=== PATIENT | female | born 1955 | race African-American/Black ===

== ENCOUNTER 2017-04-05 08:56 | Inpatient (IN) | payer OTHER ==
--- NOTE | 2017-04-05 09:13 | PDOC ---
History of Present Illness <Gregg Powell - Last Filed: 04/05/17 11:44> - History of Present Illness Initial Comments: 04/05/17 09:36 The patient is a 61 year old female, with a significant past medical history of hypertension (untreated), who presents to the emergency department with left sided back pain radiating to her left flank and left upper and lower abdominal quadrants since her discharge from [facility] about 2 weeks ago. The patient is not the best historian, however, staff from [facility] ED was able to inform me the patient was admitted to the 5th floor on 03/18/17 for similar complaints. The patient states she was discharged home on Tylenol codeine, a liquid diet, and miralax. She states she has been constipated since her discharge, but reports about a few small, painful, hard bowel movements in the past 5-7 days. She reports a bowel movement this morning which exacerbated her flank and abdominal pain. She states they told me I had gallstones that would pass, but then they said I didnt have gallstones. She denies chest pain, shortness of breath, headache and dizziness. She denies fever, chills, nausea, vomit, diarrhea. She denies dysuria, frequency, urgency and hematuria. Allergies: ampicillin Past surgical history: hysterectomy (~20 yrs ago) Social history: Pt denies tobacco use. Reports occasional ETOH. Patient has no PCP (reportedly between insurances at the moment) <Edie Harris - Last Filed: 04/05/17 13:32> - General Chief Complaint: Pain Stated Complaint: ABD PAIN Time Seen by Provider: 04/05/17 09:12 Past History <Gregg Powell - Last Filed: 04/05/17 11:44> <Edie Harris - Last Filed: 04/05/17 13:32> - Past Medical History Allergies/Adverse Reactions: Allergies Allergy/AdvReac Type Severity Reaction Status Date / Time ampicillin Allergy Verified 04/05/17 09:56 Home Medications: Ambulatory Orders NK [No Known Home Medication] 04/05/17 Review of Systems - Review of Systems Able to Perform ROS?: Yes Comments:: 04/05/17 09:36 GENERAL/CONSTITUTIONAL: No fever or chills. No weakness. HEAD, EYES, EARS, NOSE AND THROAT: No change in vision. No ear pain or discharge. No sore throat. CARDIOVASCULAR: No chest pain or shortness of breath. RESPIRATORY: No cough, wheezing, or hemoptysis. GASTROINTESTINAL: (+) left sided abdominal pain. constipation with "small hard painful BM." No nausea, vomiting, diarrhea GENITOURINARY: (+) left flank pain. No dysuria, frequency, or change in urination. MUSCULOSKELETAL: No joint or muscle swelling or pain. No neck or back pain. SKIN: No rash NEUROLOGIC: No headache, vertigo, loss of consciousness, or change in strength/ sensation. ENDOCRINE: No increased thirst. No abnormal weight change. HEMATOLOGIC/LYMPHATIC: No anemia, easy bleeding, or history of blood clots. ALLERGIC/IMMUNOLOGIC: No hives or skin allergy. <Edie Harris - Last Filed: 04/05/17 13:32> *Physical Exam - Vital Signs Last Vital Signs Temp Pulse Resp BP Pulse Ox 98.3 F 94 H 18 214/139 100 04/05/17 09:08 04/05/17 09:08 04/05/17 09:08 04/05/17 09:08 04/05/17 09:08 - Physical Exam Comments: 04/05/17 09:39 GENERAL: Awake, alert, and fully oriented, in no acute distress HEAD: No signs of trauma EYES: PERRLA, EOMI, sclera anicteric, conjunctiva clear ENT: Auricles normal inspection, hearing grossly normal, nares patent, oropharynx clear without exudates. Moist mucosa NECK: Normal ROM, supple, no lymphadenopathy, JVD, or masses LUNGS: Breath sounds equal, clear to auscultation bilaterally. No wheezes, and no crackles HEART: Regular rate and rhythm, normal S1 and S2, no murmurs, rubs or gallops ABDOMEN: (+) slightly distended. Soft, nontender, normoactive bowel sounds. No guarding, no rebound. No masses EXTREMITIES: Normal range of motion, no edema. No clubbing or cyanosis. No cords, erythema, or tenderness NEUROLOGICAL: Cranial nerves II through XII grossly intact. Normal speech, normal gait SKIN: Warm, Dry, normal turgor, no rashes or lesions noted. <Edie Harris - Last Filed: 04/05/17 13:32> ED Treatment Course - LABORATORY CBC & Chemistry Diagram: 04/05/17 09:50 04/05/17 09:50 <Gregg Powell - Last Filed: 04/05/17 11:44> - LABORATORY CBC & Chemistry Diagram: 04/05/17 09:50 04/05/17 09:50 - RADIOLOGY Radiograph Interpretation: EXAM#: TYPE/EXAM: RESULT: [id number] US/KIDNEY / RENAL US [id number] US/ABDOMEN US -LIMITED History of gallstones. Flank pain Upper abdomen and bilateral renal ultrasound. No prior is available for comparison. The liver is within normal limits in size with a slightly coarse echotexture. The gallbladder is adequately distended with multiple intraluminal stones and mild thickening of its wall measuring 4 mm. There is no evidence of pericholecystic free fluid. No intra or extrahepatic bile duct dilatation is seen. The right and left kidney measured 9.2 and 9.2 cm , respectively. Both kidneys appear unremarkable. The spleen measures 7.1 cm in sagittal length with homogeneous echotexture. Visualized portion of the pancreatic head and body appear unremarkable. Visualized portion of the proximal abdominal aorta and inferior vena cava are patent. Normal flow in the main portal vein. IMPRESSION: Multiple gallstones and mild thickening of the gallbladder wall without evidence of pericholecystic free fluid. Correlate clinically for further evaluation. Slightly coarse echotexture of the liver rule out mild fatty infiltration. Please correlate with liver enzymes Reported By: Aldair Saldana MD 04/05/17 1119 EXAM#: TYPE/EXAM: RESULT: [id number] RAD/CHEST - PA Constipation. Pain. Chest x ray, AP sitting A frontal view of the chest was obtained. Compared to prior chest x-ray dated 03/15/2006. The cardiac silhouette remains borderline in size with mild atherosclerotic unfolding of the aortic arch. The lung is clear. Mediastinum and visualized osseous structures appear intact . Impression: Borderline cardiomegaly. No acute lung disease is present. Reported By: Aldair Saldana MD 04/05/17 1125 <Edie Harris - Last Filed: 04/05/17 13:32> Medical Decision Making - Medical Decision Making 04/05/17 09:40 [facility] ED was called ([phone]) inquiring about this patient's recent admission. The patient's case was discussed with MP Bhatti. I was informed the patient was admitted to [facility]'s 5th floor on 03/18/17. I was informed the patient had and ultrasound while admitted, however, the nurse states she is unable to provide me with the report due to medical record accession restrictions. I have faxed the authorization form for the release of patient information to ). This number was provided to me by "Dany" at [facility] ED via phone call. 04/05/17 12:10 At this time, I am still pending the medical records from this patient's most recent admission to [facility]. 04/05/17 13:25 We are still pending the records from [facility] ED. 04/05/17 13:30 A message was left with the medical correspondence office ([phone]) of [facility] requesting a call back to determine when we will receive the medical records of this patient. <Edie Harris - Last Filed: 04/05/17 13:32> *DC/Admit/Observation/Transfer - Discharge Dispostion Admit: Yes - Attestations Physician Attestion: 04/05/17 09:12 I, Dr. Gregg Powell, attest that this document has been prepared under my direction and personally reviewed by me in its entirety. I further attest, that it accurately reflects all work, treatment, procedures and medical decision -making performed by me. <Gregg Powell - Last Filed: 04/05/17 11:44> - Attestations Scribe Attestion: 04/05/17 09:39 Documentation prepared by Edie Harris, acting as medical insurance verifier for Gregg Powell DO <Edie Harris - Last Filed: 04/05/17 13:32> Diagnosis at time of Disposition: Dehydration, Uncontrolled hypertension, Gallstones, Biliary colic, Cholecystitis, Constipation, Left sided abdominal pain - Discharge Dispostion Condition at time of disposition: Improved
[2017-04-05] MEDS ORDERED: hydrALAZINE HCL 20 MG/ML VIAL ONE ×2 (09:49→13:52)
[2017-04-05] MEDS ORDERED: hydrALAZINE HCL 20 MG/ML VIAL IVPUSH ONE ×2 (09:49→13:35)
[2017-04-05 10:00] LABS: BASOPHIL 0.9 % (0-2.0); MCH 25.8 pg (25.7-33.7); MCHC 33.1 g/dl (32.0-36.0); MEAN PLT VOLUME 8.7 fl (7.5-11.1); NEUTROPHILS 77.6 % (42.8-82.8); PLATELET COUNT 287 K/MM3 (134-434); RDW 15.3 % (11.6-15.6); WHITE BLOOD COUNT 9.2 K/mm3 (4.0-10.0)
[2017-04-05 10:11] LABS: INR 1.16 (0.82-1.09); PROTHROMBIN TIME (PATIENT) 13.1 SEC (9.98-11.88)
[2017-04-05 10:26] LABS: ALBUMIN 4.5 g/dl (3.4-5.0); ANION GAP 9 (8-16); BILIRUBIN,TOTAL 0.6 mg/dL (0.2-1.0); CALCIUM 10.1 mg/dL (8.5-10.1); CO2 30 mmol/L (21-32); CPK 139 IU/L (26-192); CREATININE 1.2 mg/dL (0.55-1.02); GLUCOSE,RANDOM 114 mg/dL (74-106); SGPT/ALT 18 U/L (12-78); TOT PROT 8.8 g/dl (6.4-8.2)
[2017-04-05 10:28] LABS: ALK PHOS 71 U/L (45-117); TROPONIN I < 0.02 ng/ml (0.00-0.05)
[2017-04-05 11:22] LABS: SGOT/AST 18 U/L (15-37)
[2017-04-05] MEDS ORDERED: ONDANSETRON 4 MG/2 ML VIAL IVPUSH ONE (11:37)
[2017-04-05] MEDS ORDERED: METOPROLOL TARTRATE 5 MG/5 ML VIAL IVPUSH ONE ×2 (11:37)
[2017-04-05] MEDS ORDERED: morphine CARPU-JECT 2 MG/1 ML DISP.SYRIN IVPUSH ONE (11:37)
[2017-04-05] MEDS ORDERED: SODIUM CHLORIDE 1,000 ML IV STA ×2 (11:42→14:44)
[2017-04-05] MEDS ORDERED: ONDANSETRON 4 MG/2 ML VIAL ONE (11:58)
[2017-04-05] MEDS ORDERED: METOPROLOL TARTRATE 5 MG/5 ML VIAL ONE ×3 (11:58→16:45)
[2017-04-05] MEDS ORDERED: morphine CARPU-JECT 10 MG/1 ML DISP.SYRIN ONE ×2 (12:00→18:55)
[2017-04-05 12:08] LABS: URINE APPEARANCE SLCLOUDY; URINE BILIRUBIN NEGATIVE (NEGATIVE); URINE BLOOD NEGATIVE (NEGATIVE); URINE COLOR DKYELLOW; URINE GLUCOSE (UA) NEGATIVE (NEGATIVE); URINE KETONE 1+ (NEGATIVE); URINE NITRITE NEGATIVE (NEGATIVE); URINE UROBILINOGEN NEGATIVE mg/dL (0.2-1.0)
[2017-04-05 12:30] LABS: URINE PROTEIN 2+ (NEGATIVE)
[2017-04-05 12:45] LABS: URINE HYALINE CAST 36 /lpf; URINE MUCUS MANY; URINE RBC 10 /hpf (0-3); URINE WBC 7 /hpf (3-5)
[2017-04-05 13:15] LABS: URINE MARIJUANA THC NEGATIVE ng/ml (CUTOFF=50)
--- NOTE | 2017-04-05 13:22 | EKG ---
Test Reason : Blood Pressure : / mmHG Vent. Rate : 092 BPM Atrial Rate : 092 BPM P-R Int : 176 ms QRS Dur : 092 ms QT Int : 350 ms P-R-T Axes : 063 000 077 degrees QTc Int : 432 ms NORMAL SINUS RHYTHM POSSIBLE LEFT ATRIAL ENLARGEMENT LEFT VENTRICULAR HYPERTROPHY CANNOT RULE OUT SEPTAL INFARCT , AGE UNDETERMINED ABNORMAL ECG WHEN COMPARED WITH ECG OF 30-DEC-2006 13:01, MINIMAL CRITERIA FOR SEPTAL INFARCT ARE NOW PRESENT T WAVE AMPLITUDE HAS INCREASED IN INFERIOR LEADS Confirmed by KENNEDI ESTRADA, TONNY ([id number]) on 04/05/2017 1:22:48 PM Referred By: Confirmed By:TONNY KOLB MD
[2017-04-05] MEDS ORDERED: METOPROLOL TARTRATE 25 MG TABLET (FP) PO ONE (13:35)
[2017-04-05] MEDS ORDERED: METOPROLOL TARTRATE 25 MG TABLET (FP) ONE (13:53)
[2017-04-05] MEDS ORDERED: ONDANSETRON 4 MG/2 ML VIAL IVPUSH PRN (14:01)
[2017-04-05] MEDS ORDERED: ACETAMINOPHEN INJECTION 100 ML IVPB ONE (14:57)
[2017-04-05] MEDS ORDERED: ACETAMINOPHEN 1000 MG/100 ML VIAL (NON FORMULARY) IVPB ONE (15:14)
--- NOTE | 2017-04-05 15:41 | HP ---
CHIEF COMPLAINT:abdominal pain PCP: HISTORY OF PRESENT ILLNESS: 61 yo F with PMHx of HTN and hyperthyroidism (s/p AC ablation) presents with two week history of abdominal pain. SHe describes 10/10 constant stabbing LLQ abdominal pain that radiates to back. She states it is exacerbated by defecation and relieved by lying still. She has had continued non bloody non billous vomiting for past 3 days. She also mentions 8/10 intermittent RUQ abdominal pain.She endorses subjective fevers and chills. No sick contacts. She was recently seen a [facility] for same issue and started on oral pain meds and discharged. Denies CP,PINEDA SOB,or palpitations. ER course was notable for: (1)BP elevated >200/100 - given hydralazine and labetolol (2)Abdominal US shows:Multiple gallstones and mild thickening of the gallbladder wall without evidence of pericholecystic free fluid (3) Recent Travel: PAST MEDICAL HISTORY:HTN, Hyperthyroidism (s/p AC ablations) PAST SURGICAL HISTORY: x2 , Hysterctomy Social History: Smoking: remote history 2 cigs/day during the regan for 4 years. Alcohol:socially Drugs: denies. Family History: Allergies ampicillin Allergy (Verified 04/05/17 09:56) HOME MEDICATIONS: Home Medications Medication Instructions Recorded NK [No Known Home Medication] 04/05/17 REVIEW OF SYSTEMS CONSTITUTIONAL: Absent: fever, chills, diaphoresis, generalized weakness, malaise, loss of appetite, weight change HEENT: Absent: rhinorrhea, nasal congestion, throat pain, throat swelling, difficulty swallowing, mouth swelling, ear pain, eye pain, visual changes CARDIOVASCULAR: Absent: chest pain, syncope, palpitations, irregular heart rate, lightheadedness , peripheral edema RESPIRATORY: Absent: cough, shortness of breath, dyspnea with exertion, orthopnea, wheezing, stridor, hemoptysis GASTROINTESTINAL:abdominal pain, abdominal distension, nausea, vomiting Absent: , diarrhea, constipation, melena, hematochezia GENITOURINARY: Absent: dysuria, frequency, urgency, hesitancy, hematuria, flank pain, genital pain MUSCULOSKELETAL: Absent: myalgia, arthralgia, joint swelling, back pain, neck pain SKIN: Absent: rash, itching, pallor HEMATOLOGIC/IMMUNOLOGIC: Absent: easy bleeding, easy bruising, lymphadenopathy, frequent infections ENDOCRINE: Absent: unexplained weight gain, unexplained weight loss, heat intolerance, cold intolerance NEUROLOGIC: Absent: headache, focal weakness or paresthesias, dizziness, unsteady gait, seizure, mental status changes, bladder or bowel incontinence PSYCHIATRIC: Absent: anxiety, depression, suicidal or homicidal ideation, hallucinations. PHYSICAL EXAMINATION Vital Signs - 24 hr 04/05/17 04/05/17 04/05/17 12:11 12:55 13:03 Temperature Pulse Rate 120 H 88 Pulse Rate [ 87 Apical] Pulse Rate [ Left Radial] Respiratory 18 Rate Blood Pressure 201/89 207/112 Blood Pressure 196/119 [Right Arm] O2 Sat by Pulse 97 Oximetry (%) 04/05/17 04/05/17 04/05/17 13:04 13:36 14:13 Temperature Pulse Rate Pulse Rate [ Apical] Pulse Rate [ 88 86 89 Left Radial] Respiratory 18 19 Rate Blood Pressure Blood Pressure 207/112 206/120 194/112 [Right Arm] O2 Sat by Pulse 96 Oximetry (%) 04/05/17 04/05/17 04/05/17 14:29 14:54 15:11 Temperature 99.8 F H 100.3 F H Pulse Rate Pulse Rate [ Apical] Pulse Rate [ 85 Left Radial] Respiratory 19 Rate Blood Pressure Blood Pressure 200/102 [Right Arm] O2 Sat by Pulse Oximetry (%) GENERAL: AAOx3, Mild distress HEAD: NC/AT EYES: PERLLA,EOMI sclera anicteric, conjunctiva clear. No lid lag. EARS, NOSE, THROAT: Moist mucous membranes. NECK: supple, no jvd LUNGS: CTAB. No wheezes, and no crackles. No accessory muscle use. HEART: RRR, normal S1 and S2 no m/g/r ABDOMEN: Soft,RUQ and LLQ tenderness , mildly distended, normoactive bowel sounds, voluntary guarding, no rebound, no masses. MUSCULOSKELETAL:No CVA tenderness. UPPER EXTREMITIES: 2+ pulses, warm, well-perfused. No cyanosis. No clubbing. No peripheral edema. LOWER EXTREMITIES: 2+ pulses, warm, well-perfused. No calf tenderness. No peripheral edema. NEUROLOGICAL: Cranial nerves II-XII intact. Normal speech. PSYCHIATRIC: Cooperative. Good eye contact.anxious SKIN: Warm, dry, normal turgor, no rashes or lesions noted, normal capillary refill. Laboratory Results - last 24 hr 04/05/17 04/05/17 04/05/17 11:49 11:49 12:35 Lactic Acid 3.2 H* Urine Color Dkyellow Urine Appearance Slcloudy Urine pH 5.0 Urine Protein 2+ H Urine Glucose (UA) Negative Urine Ketones 1+ H Urine Blood Negative Urine Nitrite Negative Urine Bilirubin Negative Urine Urobilinogen Negative Urine RBC 10 Urine WBC 7 Ur Epithelial Cells Rare Hyaline Casts 36 Urine Mucus Many Opiates Screen Positive Methadone Screen Negative Barbiturate Screen Positive Phencyclidine Screen Negative Ur Amphetamines Screen Negative MDMA (Ecstasy) Screen Negative Benzodiazepines Screen Negative Cocaine Screen Negative U Marijuana (THC) Screen Negative Blood Type 04/05/17 13:38 Lactic Acid Urine Color Urine Appearance Urine pH Urine Protein Urine Glucose (UA) Urine Ketones Urine Blood Urine Nitrite Urine Bilirubin Urine Urobilinogen Urine RBC Urine WBC Ur Epithelial Cells Hyaline Casts Urine Mucus Opiates Screen Methadone Screen Barbiturate Screen Phencyclidine Screen Ur Amphetamines Screen MDMA (Ecstasy) Screen Benzodiazepines Screen Cocaine Screen U Marijuana (THC) Screen Blood Type O POSITIVE ASSESSMENT/PLAN: 61 yo F with PMHx of HTN and hyperthyroidism (s/p AC ablation) presents with two week history of abdominal pain admitted to med/surg for hypertensive urgency and intractable abdominal pain. Problem List - Problem (1) Hypertensive urgency Assessment/Plan: * Due to BP >200/100 patient is at increased risk for adverse cardiac events including but not limited to stroke or myocardial infarction. * Will admit to med/surg * Cardiology consult. * Echo ordered. * Labetolol and hydralazine for BP control pending cardiology recommendation. (2) Biliary colic Assessment/Plan: * Pain control with IV morphine 2mg IVPush Q4H PRN * NPO for now * Surgical evaluation. (3) Constipation Assessment/Plan: * Miralax and colace (4) Dehydration Assessment/Plan: * IVF hydration with caution given her elevated BP * IVF with NS @ 75ml hr (5) DVT prophylaxis Assessment/Plan: * Heparin 5000 u SQ TID. (6) DIANA (acute kidney injury) Assessment/Plan: * IVF * Renal US did not show hydronephrosis Code(s): N17.9 - ACUTE KIDNEY FAILURE, UNSPECIFIED Visit type - Emergency Visit Emergency Visit: Yes ED Registration Date: 04/05/17 Care time: The patient presented to the Emergency Department on the above date and was hospitalized for further evaluation of their emergent condition. - New Patient This patient is new to me today: Yes Date on this admission: 04/05/17 - Critical Care Critical Care patient: No
[2017-04-05] MEDS ORDERED: METOPROLOL TARTRATE 5 MG/5 ML VIAL IVPUSH PRN (15:49)
[2017-04-05] MEDS ORDERED: hydrALAZINE HCL 20 MG/ML VIAL IVPUSH PRN ×2 (15:49→21:00)
--- NOTE | 2017-04-05 16:08 | CON.CARD ---
Consult Consult Specialty:: Cardiology Referred by:: Sharif Chavarria Reason for Consultation:: htn - History of Present Illness Chief Complaint: abdominal pain History of Present Illness: 61 year old female with a pmhx of htn and hyperthyroidism (AC ablation) presenting with two weeks of abdominal pain. 10/10 left sided abdominal pain to back. +vomiting for 3 days. +intermittent RUQ abdominal pain. No chest pain. No sob. No palpitations. +subj fevers. Abd US demonstrated multiple gallstones with mild thickening of the gallbladder wall without evidence of pericholecystic free fluid EKG: sinus rhythm with LVH Hypertensive in ER. No headache or change in vision. - Alcohol/Substance Use Hx Alcohol Use: No - Smoking History Smoking history: Never smoked Have you smoked in the past 12 months: No Home Medications - Allergies Allergies/Adverse Reactions: Allergies Allergy/AdvReac Type Severity Reaction Status Date / Time ampicillin Allergy Verified 04/05/17 09:56 - Home Medications Home Medications: Ambulatory Orders NK [No Known Home Medication] 04/05/17 Vital Signs: Vital Signs Temperature 100.3 F H 04/05/17 14:54 Pulse Rate 85 04/05/17 15:11 Respiratory Rate 19 04/05/17 15:11 Blood Pressure 200/102 04/05/17 15:11 O2 Sat by Pulse Oximetry (%) 96 04/05/17 13:36 - Other Data Labs, Other Data: INR, PTT INR 1.16 (0.82-1.09) H 04/05/17 09:50 Problem List - Problems (1) Hypertensive urgency Code(s): I16.0 - HYPERTENSIVE URGENCY (2) Left sided abdominal pain Code(s): R10.9 - UNSPECIFIED ABDOMINAL PAIN Assessment/Plan 61 year old female with a pmhx of htn and hyperthyroidism (AC ablation) presenting with two weeks of abdominal pain. 10/10 left sided abdominal pain to back. +vomiting for 3 days. +intermittent RUQ abdominal pain. No chest pain. No sob. No palpitations. +subj fevers. Abd US demonstrated multiple gallstones with mild thickening of the gallbladder wall without evidence of pericholecystic free fluid EKG: sinus rhythm with LVH Hypertensive in ER. No headache or change in vision. 1) HTN -patient with abdominal pain and found to have gallstones. Pain control Patient says she ran out of meds at home. -Would start CCB followed by [facility]-/arb if needed for skilled nursing treatment EKG with sinus rhythm 90s and lvh Would treat with CCB first such as amlodipine 10mg daily. Would than add losartan if needed for bp control. Echocardiogram during admission.
[2017-04-05] MEDS: SODIUM CHLORIDE 1,000 ML IV SCH (16:15)
[2017-04-05 17:01] LABS: URINE LEUK ESTERASE Negative (NEGATIVE)
--- NOTE | 2017-04-05 17:11 | PN ---
Teaching Attending Note Name of Resident: Sharif Chavarria ATTENDING PHYSICIAN STATEMENT I saw and evaluated the patient. I reviewed the resident's note and discussed the case with the resident. I agree with the resident's findings and plan as documented. SUBJECTIVE: This is a 61 year old woman with a history of HTN, hyperthyroidism who comes to the ER complaining of abdominal pain. She has had pain for about 2 weeks. The pain is left sided. She had been at [facility] 2 weeks ago for the same symptoms. She had been constipated from the time of discharge until this morning when she had a bowel movement which caused her pain to worsen. She reports vomiting for the last 3 days. OBJECTIVE: Vital Signs Period Temp Pulse Resp BP Sys/Cabrera Pulse Ox Last 24 Hr 98.3 F-100.3 F 82-161 17-19 192-214/89-139 96-100 HEART: S1S2, RRR LUNGS: Clear ABDOMEN: Soft, non-distended, (+) RUQ/LUQ/LLQ tenderness, normal BS EXTREMITIES: No edema Home Medications Medication Instructions Recorded NK [No Known Home Medication] 04/05/17 Laboratory Tests 04/05/17 04/05/17 04/05/17 09:50 09:50 09:50 WBC 9.2 RBC 5.51 H Hgb 14.2 Hct 42.9 MCV 78.0 L MCH 25.8 MCHC 33.1 RDW 15.3 Plt Count 287 MPV 8.7 Neutrophils % 77.6 Lymphocytes % 15.6 Monocytes % 5.9 Eosinophils % 0.0 Basophils % 0.9 PT with INR 13.10 H INR 1.16 H Sodium 141 Potassium 3.4 L Chloride 102 Carbon Dioxide 30 Anion Gap 9 BUN 19 H Creatinine 1.2 H Creat Clearance w eGFR 45.98 Random Glucose 114 H Lactic Acid Calcium 10.1 Total Bilirubin 0.6 AST 18 ALT 18 Alkaline Phosphatase 71 Creatine Kinase 139 Troponin I < 0.02 Total Protein 8.8 H Albumin 4.5 Lipase 112 Urine Color Urine Appearance Urine pH Urine Protein Urine Glucose (UA) Urine Ketones Urine Blood Urine Nitrite Urine Bilirubin Urine Urobilinogen Urine RBC Urine WBC Ur Epithelial Cells Hyaline Casts Urine Mucus Opiates Screen Methadone Screen Barbiturate Screen Phencyclidine Screen Ur Amphetamines Screen MDMA (Ecstasy) Screen Benzodiazepines Screen Cocaine Screen U Marijuana (THC) Screen Blood Type Antibody Screen 04/05/17 04/05/17 04/05/17 11:41 11:49 11:49 WBC RBC Hgb Hct MCV MCH MCHC RDW Plt Count MPV Neutrophils % Lymphocytes % Monocytes % Eosinophils % Basophils % PT with INR INR Sodium Potassium Chloride Carbon Dioxide Anion Gap BUN Creatinine Creat Clearance w eGFR Random Glucose Lactic Acid Calcium Total Bilirubin AST ALT Alkaline Phosphatase Creatine Kinase Troponin I Total Protein Albumin Lipase Urine Color Dkyellow Urine Appearance Slcloudy Urine pH 5.0 Urine Protein 2+ H Urine Glucose (UA) Negative Urine Ketones 1+ H Urine Blood Negative Urine Nitrite Negative Urine Bilirubin Negative Urine Urobilinogen Negative Urine RBC 10 Urine WBC 7 Ur Epithelial Cells Rare Hyaline Casts 36 Urine Mucus Many Opiates Screen Positive Methadone Screen Negative Barbiturate Screen Positive Phencyclidine Screen Negative Ur Amphetamines Screen Negative MDMA (Ecstasy) Screen Negative Benzodiazepines Screen Negative Cocaine Screen Negative U Marijuana (THC) Screen Negative Blood Type O POSITIVE Antibody Screen Negative 04/05/17 04/05/17 12:35 13:38 WBC RBC Hgb Hct MCV MCH MCHC RDW Plt Count MPV Neutrophils % Lymphocytes % Monocytes % Eosinophils % Basophils % PT with INR INR Sodium Potassium Chloride Carbon Dioxide Anion Gap BUN Creatinine Creat Clearance w eGFR Random Glucose Lactic Acid 3.2 H* Calcium Total Bilirubin AST ALT Alkaline Phosphatase Creatine Kinase Troponin I Total Protein Albumin Lipase Urine Color Urine Appearance Urine pH Urine Protein Urine Glucose (UA) Urine Ketones Urine Blood Urine Nitrite Urine Bilirubin Urine Urobilinogen Urine RBC Urine WBC Ur Epithelial Cells Hyaline Casts Urine Mucus Opiates Screen Methadone Screen Barbiturate Screen Phencyclidine Screen Ur Amphetamines Screen MDMA (Ecstasy) Screen Benzodiazepines Screen Cocaine Screen U Marijuana (THC) Screen Blood Type O POSITIVE Antibody Screen ASSESSMENT AND PLAN: This is a 61 year old woman with a history of HTN, hyperthyroidism who presented to the ER today with abdominal pain x 2 weeks. 1. Hypertensive urgency - Treated with Hydralazine, Labetalol in ER 2. Abdominal pain - Likely secondary to constipation and symptomatic cholelithiasis - Doubt acute cholecystitis - Has elevated lactic acid so will do CT abd/pelvis - Start Miralax - Zofran as needed for nausea - IV fluid - Surgery consult 3. Hypokalemia secondary to vomiting - Replete potassium 4. Possible acute kidney injury secondary to dehydration from vomiting - IV fluid - Kidneys unremarkable on US - Monitor creatinine 5. Possible stage 3 CKD 6. Hypertension, uncontrolled - Start Norvasc - Continue Labetalol, Hydralazine as needed - Echocardiogram 7. Lactic acidemia - No evidence of sepsis - IV fluid - Monitor lactic acid 8. Hyperthyroidism - Previously treated with radioactive iodine
--- NOTE | 2017-04-05 17:20 | CONSULT ---
Consult Consult Specialty:: General Surgery Referred by:: Emergency Department Reason for Consultation:: Abdominal pain - History of Present Illness Chief Complaint: Abdominal pain History of Present Illness: This is a 61 year-old female who presented to the emergency department with a 2- week history of abdominal pain. She states the pain is primarily in the left lower quadrant of the abdomen and is a little better with bowel movements. The patient is vague with her history. She was recently discharged from [facility] in [place] where she was admitted for abdominal pain and cholelithiasis. She states her pain never improved and became worse and she came to [facility]. She states she had multiple episodes of nausea with vomiting. She denies change in bowel habits, hematochezia, melena, or giovanny- colored stools. - History Source History Provided By: Patient Limitations to Obtaining History: Other (Somewhat vague historian) - Past Medical History Cardio/Vascular: Yes: HTN Gastrointestinal: Yes: Constipation Hepatobiliary: Yes: Cholelithiasis Renal/: No: Renal Inusuff - Past Surgical History Past Surgical History: Yes: - Alcohol/Substance Use Hx Alcohol Use: Yes (Socially) History of Substance Use: reports: None - Smoking History Smoking history: Never smoked Have you smoked in the past 12 months: No Home Medications - Allergies Allergies/Adverse Reactions: Allergies Allergy/AdvReac Type Severity Reaction Status Date / Time ampicillin Allergy Verified 04/05/17 09:56 - Home Medications Home Medications: Ambulatory Orders NK [No Known Home Medication] 04/05/17 Family Disease History - Family Disease History Family Disease History: Diabetes: Grandparent, Mother, Sister Review of Systems - Review of Systems Constitutional: reports: Lethargy, Weakness Eyes: denies: Blurred Vision, Double Vision HENT: denies: Ear Discharge, Epistaxis Neck: denies: Lumps, Pain on Movement Cardiovascular: denies: Chest Pain, Edema Respiratory: denies: Cough, Hemoptysis Gastrointestinal: reports: Abdominal Pain, Constipation, Nausea, Vomiting. denies: Rectal Bleeding Genitourinary: denies: Dysuria, Frequency Musculoskeletal: denies: Back Pain, Decreased ROM Integumentary: denies: Change in Color, Eczema Neurological: denies: Change in Speech, Confusion Endocrine: denies: Excessive Sweating, Increased Hunger Hematology/Lymphatic: denies: Excessive Bleeding, Swollen Glands Psychiatric: denies: Altered Sleep Pattern, Depression Physical Exam Vital Signs: Vital Signs Temperature 99.6 F 04/05/17 16:39 Pulse Rate 82 04/05/17 16:49 Respiratory Rate 19 04/05/17 16:39 Blood Pressure 211/115 04/05/17 16:49 O2 Sat by Pulse Oximetry (%) 96 04/05/17 13:36 Constitutional: Yes: Calm, Mild Distress Eyes: Yes: Conjunctiva Clear, EOM Intact HENT: Yes: Atraumatic, Normocephalic Neck: Yes: Supple, Trachea Midline Cardiovascular: Yes: Regular Rate and Rhythm. No: S3 Respiratory: Yes: Regular, CTA Bilaterally Gastrointestinal: Yes: Normal Bowel Sounds, Soft, Other (Right upper quadrant tenderness to palpation with positive Garcia's sign. No significant left lower quadrant tenderness. No rebound or guarding. Infraumbilical midline scar) ...Rectal Exam: Yes: Deferred Renal/: No: Hematuria, Incontinence Musculoskeletal: No: Back Pain, Joint Stiffness Extremities: No: Calf Tenderness, Cyanosis Edema: No Integumentary: No: Bruising, Erythema Neurological: Yes: Alert, Oriented Psychiatric: Yes: Alert, Oriented Labs: CBCD WBC 9.2 K/mm3 (4.0-10.0) 04/05/17 09:50 RBC 5.51 M/mm3 (3.60-5.2) H 04/05/17 09:50 Hgb 14.2 GM/dL (10.7-15.3) 04/05/17 09:50 Hct 42.9 % (32.4-45.2) 04/05/17 09:50 MCV 78.0 fl (80-96) L 04/05/17 09:50 MCHC 33.1 g/dl (32.0-36.0) 04/05/17 09:50 RDW 15.3 % (11.6-15.6) 04/05/17 09:50 Plt Count 287 K/MM3 (134-434) 04/05/17 09:50 MPV 8.7 fl (7.5-11.1) 04/05/17 09:50 CMP Sodium 141 mmol/L (136-145) 04/05/17 09:50 Potassium 3.4 mmol/L (3.5-5.1) L 04/05/17 09:50 Chloride 102 mmol/L (98-107) 04/05/17 09:50 Carbon Dioxide 30 mmol/L (21-32) 04/05/17 09:50 Anion Gap 9 (8-16) 04/05/17 09:50 BUN 19 mg/dL (7-18) H 04/05/17 09:50 Creatinine 1.2 mg/dL (0.55-1.02) H 04/05/17 09:50 Creat Clearance w eGFR 45.98 (>60) 04/05/17 09:50 Random Glucose 114 mg/dL (74-106) H 04/05/17 09:50 Calcium 10.1 mg/dL (8.5-10.1) 04/05/17 09:50 Total Bilirubin 0.6 mg/dL (0.2-1.0) 04/05/17 09:50 AST 18 U/L (15-37) 04/05/17 09:50 ALT 18 U/L (12-78) 04/05/17 09:50 Alkaline Phosphatase 71 U/L (45-117) 04/05/17 09:50 Total Protein 8.8 g/dl (6.4-8.2) H 04/05/17 09:50 Albumin 4.5 g/dl (3.4-5.0) 04/05/17 09:50 CARDIAC ENZYMES Creatine Kinase 139 IU/L (26-192) 04/05/17 09:50 Troponin I < 0.02 ng/ml (0.00-0.05) 04/05/17 09:50 Imaging - Results Ultrasound: Report Reviewed, Image Reviewed (Cholelithiasis with thickened gallbadder wall) Assessment/Plan ASSESSMENT: 61 year-old female with uncontrolled hypertension Abdominal pain LLQ Abdominal pain RUQ Acute biliary colic Possible acute cholecystitis Elevated lactate PLAN: The patient has been admitted to medicine Pain management If LLQ pain persists, do CT scan of abdomen and pelvis with oral and IV contrast Clear liquid diet as tolerated IV fluids No need for antibiotics at this time Cholecystectomy this admission
[2017-04-05] MEDS ORDERED: amLODIPine BESYLATE 5 MG TABLET (FP) ONE (18:05)
[2017-04-05] MEDS: amLODIPine BESYLATE 10 MG TABLET (FP) PO SCH (18:06)
[2017-04-05] MEDS: morphine CARPU-JECT 2 MG/1 ML DISP.SYRIN IVPUSH PRN (19:00)
[2017-04-05] MEDS ORDERED: HEPARIN NA (PORCINE) 5,000 UNITS/ML 1ML VIAL ONE (19:19)
[2017-04-05] MEDS: HEPARIN NA (PORCINE) 5,000 UNITS/ML 1ML VIAL SQ SCH (19:24)
[2017-04-05] MEDS ORDERED: SODIUM CHLORIDE 0.9% 1000 ML INFUS.BAG IV ONE (22:21)
[2017-04-05] MEDS ORDERED: ACETYLCYSTEINE 20% 200MG/ML 30 ML VIAL *FOR ORAL / INH USE ONLY PO SCH (22:30)
[2017-04-06] MEDS: DOCUSATE SODIUM 100 MG CAPSULE (FP) PO SCH ×4 (00:08→22:04)
[2017-04-06] MEDS: SODIUM CHLORIDE 1,000 ML IV SCH (01:46)
[2017-04-06 01:56] VITALS: BMI 20.5
[2017-04-06] MEDS: HEPARIN NA (PORCINE) 5,000 UNITS/ML 1ML VIAL SQ SCH ×3 (02:58→17:22)
[2017-04-06 06:45] LABS: BASOPHIL 0.6 % (0-2.0); EOSINOPHIL 0.2 % (0-4.5); MCH 26.7 pg (25.7-33.7); MCHC 33.9 g/dl (32.0-36.0); MEAN CELL VOLUME 78.6 fl (80-96); MEAN PLT VOLUME 8.7 fl (7.5-11.1); NEUTROPHILS 59.7 % (42.8-82.8); PLATELET COUNT 262 K/MM3 (134-434); RDW 15.5 % (11.6-15.6)
[2017-04-06 07:03] LABS: ALBUMIN 3.6 g/dl (3.4-5.0); ANION GAP 13 (8-16); CALCIUM 8.5 mg/dL (8.5-10.1); CO2 24 mmol/L (21-32); GLUCOSE,RANDOM 85 mg/dL (74-106); PHOSPHOROUS 3.8 mg/dL (2.5-4.9); SGOT/AST 11 U/L (15-37)
[2017-04-06 07:06] LABS: ALK PHOS 54 U/L (45-117); BILIRUBIN,TOTAL 0.8 mg/dL (0.2-1.0); CREATININE 0.7 mg/dL (0.55-1.02); SGPT/ALT 13 U/L (12-78); TOT PROT 6.8 g/dl (6.4-8.2)
[2017-04-06 07:09] LABS: INR 1.15 (0.82-1.09)
[2017-04-06 07:11] LABS: ACTIVATED PTT 55.8 SECONDS (26.9-34.4)
[2017-04-06] MEDS ORDERED: POTASSIUM CHLORIDE TABS 20 MEQ TABLET.ER (FP) PO ONE (08:15)
[2017-04-06] MEDS ORDERED: POTASSIUM CHLORIDE 30 MEQ in SODIUM CHLORIDE 250 ML IVPB ONE (09:00)
[2017-04-06] MEDS ORDERED: FLU VACCINE QUAD 60 MCG/0.5 ML (MDV 17-18) IM ONE (10:00)
[2017-04-06] MEDS: amLODIPine BESYLATE 10 MG TABLET (FP) PO SCH (10:32)
--- NOTE | 2017-04-06 11:46 | PN ---
Progress Note, Physician Chief Complaint: LLQ and RUQ pain History of Present Illness: Pt seen and examined in bed with Dr. Godinez of medical team this morning. Feeling much better than yesterday. Still with some pain in RUQ, especially with deep inspiration. More alert, better color. No nausea, no BM yet. NPO with IVF. K+ being repleted. Lactate down to normal. No overnight events. BP decreased to acceptable range, meds per cardiology. - Current Medication List Current Medications: Active Medications Amlodipine Besylate (Norvasc -) 10 mg PO DAILY [facility] Last Admin: 04/06/17 10:32 Dose: 10 mg Docusate Sodium (Colace -) 100 mg PO TID [facility] Last Admin: 04/06/17 05:56 Dose: 100 mg Heparin Sodium (Porcine) (Heparin -) 5,000 unit SQ Q8H-IV [facility] Last Admin: 04/06/17 11:24 Dose: Not Given Hydralazine HCl (Apresoline Injection -) 10 mg IVPUSH Q6H PRN PRN Reason: HYPERTENSION Potassium Chloride 30 meq/ (Sodium Chloride) 265 mls @ 88.333 mls/hr IVPB ONCE ONE Stop: 04/06/17 11:59 Last Admin: 04/06/17 10:31 Dose: 88.333 mls/hr Metoprolol Tartrate (Lopressor Injection -) 5 mg IVPUSH Q4H PRN PRN Reason: HYPERTENSION Last Admin: 04/05/17 16:49 Dose: 5 mg Morphine Sulfate (Morphine Injection -) 2 mg IVPUSH Q4H PRN PRN Reason: PAIN Last Admin: 04/05/17 19:00 Dose: 2 mg Ondansetron HCl (Zofran Injection) 4 mg IVPUSH Q6H PRN PRN Reason: NAUSEA Polyethylene Glycol (Miralax (For Daily Use) -) 17 gm PO DAILY [facility] - Objective Vital Signs: Vital Signs Temperature 98.5 F 04/06/17 05:55 Pulse Rate 70 04/06/17 05:55 Respiratory Rate 18 04/06/17 05:55 Blood Pressure 151/82 04/06/17 05:55 O2 Sat by Pulse Oximetry (%) 100 04/05/17 21:00 Constitutional: Yes: No Distress, Calm, Thin Eyes: Yes: Conjunctiva Clear, EOM Intact. No: Sclera Icterus HENT: Yes: Atraumatic, Normocephalic Neck: Yes: Supple, Trachea Midline Cardiovascular: Yes: Regular Rate and Rhythm, Murmur Respiratory: Yes: Regular, CTA Bilaterally Gastrointestinal: Yes: Normal Bowel Sounds (to slightly decreased), Soft, Tenderness (RUQ with deep palpation and with deep inspiration, no R/G). No: Distention ...Rectal Exam: Yes: Deferred Musculoskeletal: No: Joint Stiffness, Joint Swelling Extremities: No: Cool, Cyanosis, Pallor Edema: No Peripheral Pulses WNL: Yes Integumentary: No: Jaundice, Rash Neurological: Yes: Alert, Oriented Psychiatric: Yes: Alert, Oriented Labs: CBC, BMP 04/06/17 06:15 04/06/17 06:15 INR, PTT INR 1.15 (0.82-1.09) H 04/06/17 06:15 PTT 55 CMP Sodium 143 mmol/L (136-145) 04/06/17 14:15 Potassium 3.6 mmol/L (3.5-5.1) D 04/06/17 14:15 Chloride 104 mmol/L (98-107) 04/06/17 14:15 Carbon Dioxide 24 mmol/L (21-32) 04/06/17 14:15 Anion Gap 15 (8-16) 04/06/17 14:15 BUN 14 mg/dL (7-18) 04/06/17 14:15 Creatinine 0.6 mg/dL (0.55-1.02) 04/06/17 14:15 Creat Clearance w eGFR > 60 (>60) 04/06/17 06:15 Random Glucose 70 mg/dL (74-106) L 04/06/17 14:15 Lactic Acid 1.4 mmol/L (0.4-2.0) 04/05/17 20:15 Calcium 8.9 mg/dL (8.5-10.1) 04/06/17 14:15 Phosphorus 3.8 mg/dL (2.5-4.9) 04/06/17 06:15 Magnesium 2.0 mg/dL (1.8-2.4) 04/06/17 06:15 Total Bilirubin 0.8 mg/dL (0.2-1.0) D 04/06/17 06:15 AST 11 U/L (15-37) L D 04/06/17 06:15 ALT 13 U/L (12-78) D 04/06/17 06:15 Alkaline Phosphatase 54 U/L (45-117) D 04/06/17 06:15 Creatine Kinase 139 IU/L (26-192) 04/05/17 09:50 Troponin I < 0.02 ng/ml (0.00-0.05) 04/05/17 09:50 Total Protein 6.8 g/dl (6.4-8.2) D 04/06/17 06:15 Albumin 3.6 g/dl (3.4-5.0) 04/06/17 06:15 Lipase 178 U/L (73-393) 04/06/17 06:15 lactate normal, LFTs, lipase normal wbc now normal K+ being repleted - ....Imaging Cat Scan: Report Reviewed (gallbladder with gas-containing stones,), Image Reviewed Problem List - Problems (1) Calculus of gallbladder with chronic cholecystitis without obstruction Assessment/Plan: BP improved pain/tenderness improved but still present NPO/IVF Discussed with patient risks, benefits and alternatives of laparoscopic possible open cholecystectomy, including but not limited to bleeding, infection , injury to adjacent structures, bile leak or ductal injury, intraabdominal collection, hernia, need for further procedures, ; alternatives include delayed or no surgery - risks of this include cholangitis, recurrent biliary colic or cholecystisis, pancreatitis, sepsis, . Patient desires to proceed with operation. Informed consent signed for same. Plan OR tomorrow early afternoon. Pt optimized by cardiology and medicine - notes appreciated Intermediate cardiac risk for intermediate risk surgery DVT prophylaxis perioperative antibiotics anticipate resuming po postoperatively pain meds prn - encourage nonnarcotics postop po Code(s): K80.10 - CALCULUS OF GALLBLADDER W CHRONIC CHOLECYST W/O OBSTRUCTION (2) Constipation Assessment/Plan: stool softeners oral contrast from CT anticipated to facilitate bowel function encourage nonnarcotic pain meds postop Code(s): K59.00 - CONSTIPATION, UNSPECIFIED Qualifiers: Constipation type: drug induced constipation Qualified Code(s): K59.03 - Drug induced constipation; K59.03 - Drug induced constipation (3) Dehydration Assessment/Plan: IV fluid resuscitation with decrease in lactate to normal much improved today Code(s): E86.0 - DEHYDRATION (4) Uncontrolled hypertension Assessment/Plan: BP improved, cardiology consult noted now controlled with meds ok for OR, meds with sips Code(s): I10 - ESSENTIAL (PRIMARY) HYPERTENSION
[2017-04-06] MEDS ORDERED: SODIUM CHLORIDE 0.9%/KCL 1,000 ML IV SCH (12:00)
[2017-04-06] MEDS: POLYETHYLENE GLYCOL 3350 119 GM BTL PO SCH (12:13)
--- NOTE | 2017-04-06 14:35 | PN ---
Progress Note, Physician Chief Complaint: Abdominal pain is improved History of Present Illness: 61 year old female with a pmhx of htn and hyperthyroidism (AC ablation) presenting with two weeks of abdominal pain. 03/21 left sided abdominal pain to back. +vomiting for 3 days. +intermittent RUQ abdominal pain. No chest pain. No sob. No palpitations. +subj fevers. Abd US demonstrated multiple gallstones with mild thickening of the gallbladder wall without evidence of pericholecystic free fluid EKG: sinus rhythm with LVH Hypertensive in ER. No headache or change in vision. - Current Medication List Current Medications: Active Medications Amlodipine Besylate (Norvasc -) 10 mg PO DAILY [facility] Last Admin: 04/06/17 10:32 Dose: 10 mg Docusate Sodium (Colace -) 100 mg PO TID [facility] Last Admin: 04/06/17 05:56 Dose: 100 mg Heparin Sodium (Porcine) (Heparin -) 5,000 unit SQ Q8H-IV [facility] Last Admin: 04/06/17 11:24 Dose: Not Given Hydralazine HCl (Apresoline Injection -) 10 mg IVPUSH Q6H PRN PRN Reason: HYPERTENSION Metoprolol Tartrate (Lopressor Injection -) 5 mg IVPUSH Q4H PRN PRN Reason: HYPERTENSION Last Admin: 04/05/17 16:49 Dose: 5 mg Morphine Sulfate (Morphine Injection -) 2 mg IVPUSH Q4H PRN PRN Reason: PAIN Last Admin: 04/05/17 19:00 Dose: 2 mg Ondansetron HCl (Zofran Injection) 4 mg IVPUSH Q6H PRN PRN Reason: NAUSEA Polyethylene Glycol (Miralax (For Daily Use) -) 17 gm PO DAILY [facility] Last Admin: 04/06/17 12:13 Dose: 17 gm - Objective Vital Signs: Vital Signs Temperature 98.9 F 04/06/17 14:17 Pulse Rate 64 04/06/17 14:17 Respiratory Rate 18 04/06/17 14:17 Blood Pressure 149/87 04/06/17 14:17 O2 Sat by Pulse Oximetry (%) 97 04/06/17 09:00 Constitutional: Yes: No Distress Neck: Yes: Supple Cardiovascular: Yes: Regular Rate and Rhythm, S1, S2. No: JVD Respiratory: Yes: CTA Bilaterally Gastrointestinal: Yes: Soft Edema: No Labs: CBC, BMP 04/06/17 06:15 INR, PTT INR 1.15 (0.82-1.09) H 04/06/17 06:15 Problem List - Problems (1) Hypertensive urgency Code(s): I16.0 - HYPERTENSIVE URGENCY (2) Left sided abdominal pain Code(s): R10.9 - UNSPECIFIED ABDOMINAL PAIN Assessment/Plan 61 year old female with a pmhx of htn and hyperthyroidism (AC ablation) presenting with two weeks of abdominal pain. 03/21 left sided abdominal pain to back. +vomiting for 3 days. +intermittent RUQ abdominal pain. No chest pain. No sob. No palpitations. +subj fevers. Abd US demonstrated multiple gallstones with mild thickening of the gallbladder wall without evidence of pericholecystic free fluid EKG: sinus rhythm with LVH Hypertensive in ER. No headache or change in vision. 1) HTN -patient with abdominal pain and found to have gallstones. CT abd with normal aortic dimensions. No adrenal mass. Pain control -BP is improved on amlodipine 10mg but could improve little more. Patient reports was always on two meds in past. Would add losartan 25mg daily EKG with sinus rhythm 90s and lvh Echocardiogram pending 2) Preop Patient is planned for surgery for gallstones. Denies any chest pain or dyspnea. Says up until abdominal pain could walk miles with no complaints. EKG with no ischemic changes. Echocardiogram pending. If no gross abnormalities than no further cardiac work up and patient would be intermediate cardiac risk for intermediate risk surgery.
--- NOTE | 2017-04-06 14:44 | PN ---
<Oh Godinez - Last Filed: 04/06/17 19:31> Physical Exam: SUBJECTIVE: 61yo F with history of HTN and hyperthyroidism s/p ablation therapy who presented to the ER on 04/05 with stabbing 10/10 RUQ for a duration about 2 weeks. She states the pain would get worse with defecation and eating, however would be alleviated by lying still. She also reports associated non-bilious non- bloody vomiting x10 episodes and about 10 episodes of watery, non-bloody diarrhea. In the ER she was found to have cholelithiasis with GB wall thickening , a prominent hepatic and common bile duct, and some cecum distention. Pt was also found to be hypertensive of ~200/100 and was given hydralazine, norvasc, and lopressor with resulting pressures of ~150/87. Currently patient has abdominal pain, however is minimized compared with initial examination in ER. Pt also reports a resolution of her nausea. She states she has not had a BM since admission, however she is passing flatus. Pt denies fever/chills, CP/discomfort, SOB, headaches, and visual disturbances Surgical History: x2 Knee arthroscopy Hysterectomy OBJECTIVE: Vital Signs Period Temp Pulse Resp BP Sys/Cabrera Pulse Ox Last 24 Hr 97.9 F-100.3 F 64-92 18-20 149-211/82-115 97-100 GENERAL: The patient is awake, alert, and fully oriented, in no acute distress. HEENT: LUNGS: CTA bilaterally, no wheezes, rales, rhonchi noted. No accessory muscle use. HEART: RRR, S1 and S2 present without murmur ABDOMEN: Soft, non-distended, tenderness with RUQ>RLQ, no guarding or rebound. + Garcia's sign. No hepatomegaly appreciated through percussion. No splenomegaly appreciated. Lower hemisphere midline scar noted. EXTREMITIES: 2+ distal pulses throughout. Keloid scars on R knee noted. No edema appreciated NEUROLOGICAL: Alert and oriented x3. Strength 5/5 throughout. Non-focal. SKIN: No rashes noted. Lesions/scars noted as above Laboratory Results - last 24 hr 04/05/17 04/05/17 04/05/17 11:49 16:39 20:15 WBC RBC Hgb Hct MCV MCH MCHC RDW Plt Count MPV Neutrophils % Lymphocytes % Monocytes % Eosinophils % Basophils % PT with INR INR PTT (Actin FS) Sodium Potassium Chloride Carbon Dioxide Anion Gap BUN Creatinine Creat Clearance w eGFR Random Glucose Lactic Acid 3.0 H* 1.4 Calcium Phosphorus Magnesium Total Bilirubin AST ALT Alkaline Phosphatase Total Protein Albumin Lipase Urine Color Dkyellow Urine Appearance Slcloudy Urine pH 5.0 Ur Specific [place] >= 1.030 H Urine Protein 2+ H Urine Glucose (UA) Negative Urine Ketones 1+ H Urine Blood Negative Urine Nitrite Negative Urine Bilirubin Negative Urine Urobilinogen Negative Ur Leukocyte Esterase Negative Urine RBC 10 Urine WBC 7 Ur Epithelial Cells Rare Hyaline Casts 36 Urine Mucus Many 04/06/17 04/06/17 04/06/17 06:15 06:15 06:15 WBC 10.0 RBC 4.82 Hgb 12.8 Hct 37.9 MCV 78.6 L MCH 26.7 MCHC 33.9 RDW 15.5 Plt Count 262 MPV 8.7 Neutrophils % 59.7 D Lymphocytes % 32.5 D Monocytes % 7.0 Eosinophils % 0.2 D Basophils % 0.6 PT with INR 13.00 H INR 1.15 H PTT (Actin FS) 55.8 H Sodium 142 Potassium 2.8 L* Chloride 105 Carbon Dioxide 24 Anion Gap 13 BUN 14 D Creatinine 0.7 D Creat Clearance w eGFR > 60 Random Glucose 85 D Lactic Acid Calcium 8.5 Phosphorus 3.8 Magnesium 2.0 Total Bilirubin 0.8 D AST 11 L D ALT 13 D Alkaline Phosphatase 54 D Total Protein 6.8 D Albumin 3.6 Lipase 178 Urine Color Urine Appearance Urine pH Ur Specific [place] Urine Protein Urine Glucose (UA) Urine Ketones Urine Blood Urine Nitrite Urine Bilirubin Urine Urobilinogen Ur Leukocyte Esterase Urine RBC Urine WBC Ur Epithelial Cells Hyaline Casts Urine Mucus Active Medications Generic Name Dose Route Start Last Admin Trade Name Freq PRN Reason Stop Dose Admin Amlodipine Besylate 10 mg 04/05/17 17:45 04/06/17 10:32 Norvasc - PO 10 mg DAILY KATERYNA Administration Docusate Sodium 100 mg 04/05/17 22:00 04/06/17 05:56 Colace - PO 100 mg TID KATERYNA Administration Heparin Sodium (Porcine) 5,000 unit 04/05/17 18:00 04/06/17 11:24 Heparin - SQ Not Given Q8H-IV KATERYNA Hydralazine HCl 10 mg 04/05/17 21:00 Apresoline Injection - IVPUSH Q6H PRN HYPERTENSION Metoprolol Tartrate 5 mg 04/05/17 15:49 04/05/17 16:49 Lopressor Injection - IVPUSH 5 mg Q4H PRN Administration HYPERTENSION Morphine Sulfate 2 mg 04/05/17 14:01 04/05/17 19:00 Morphine Injection - IVPUSH 2 mg Q4H PRN Administration PAIN Ondansetron HCl 4 mg 04/05/17 14:01 Zofran Injection IVPUSH Q6H PRN NAUSEA Polyethylene Glycol 17 gm 04/06/17 10:00 04/06/17 12:13 Miralax (For Daily Use) - PO 17 gm DAILY [facility] Administration ASSESSMENT/PLAN: 61yo F with history of HTN and hyperthyroidism s/p ablation therapy found to have abdominal pain 2/2 cholelithiasis found on Abd US and CT w/ IV contrast ( with GB wall thickening and prominent hepatic and CBD. Dr. Go consulted with recommendations for laparoscopic cholecystectomy possible open for tomorrow. 1) Chronic cholecystitis; acute exacerbation --Dr. Go consulted - recommends surgical intervention --NPO except for meds --IVF running - will switch to D5-NS due to NPO status --Zofran PRN for nausea --No antibiotics currently (discussed with Dr. Go and Dr. Kaplan); if fever spikes during night okay to use Zosyn 2) Pre-op clearance --Pt is medically optimized for surgery tomorrow: Intermediate risk patient for a moderate risk --Type/Screen already performed; Coags already performed --CBC, CMP, Mg, Phos for AM --NPO after midnight --Cardiology consulted for evalutation --Echo = Mild concentric left ventricular hypertrophy Normal EF Trace tricuspid regurgitation --Cardiac clearance for surgery noted 3) Hypertensive Urgency --This morning improved to 151/82 --Cardiology consulted: Continue Norvasc 10mg Add Losartan 25mg qdaily --Continue Hydralazine 10mg IVP q6 PRN --Continue Lopressor 5mg IVP q4 PRN FEN: Fluids: D5-Normal Saline @75cc/hr Electrolyte abnormality: Hypokalemia; repleted; repeat BMP shows 3.6 Nutrition: NPO Ppx DVT - Heparin 5000U SQ TID Case discussed with Dr. Kapinos Oh Corti, DO - Internal Medicine PGY-1 Visit type - Emergency Visit Emergency Visit: No - New Patient This patient is new to me today: Yes Date on this admission: 04/06/17 - Critical Care Critical Care patient: No <Beau Kaplan - Last Filed: 04/07/17 07:39> Physical Exam: SUBJECTIVE: Patient seen and examined OBJECTIVE: Vital Signs Period Temp Pulse Resp BP Sys/Cabrera Pulse Ox Last 24 Hr 98.3 F-99.5 F 62-86 18-18 135-167/87-98 97-99 GENERAL: The patient is awake, alert, and fully oriented, in no acute distress. HEAD: Normal with no signs of trauma. EYES: PERRL, extraocular movements intact, sclera anicteric, conjunctiva clear. No ptosis. ENT: Ears normal, nares patent, oropharynx clear without exudates, moist mucous membranes. NECK: Trachea midline, full range of motion, supple. LUNGS: Breath sounds equal, clear to auscultation bilaterally, no wheezes, no crackles, no accessory muscle use. HEART: Regular rate and rhythm, S1, S2 without murmur, rub or gallop. ABDOMEN: Soft, nontender, nondistended, normoactive bowel sounds, no guarding, no rebound, no hepatosplenomegaly, no masses. EXTREMITIES: 2+ pulses, warm, well-perfused, no edema. NEUROLOGICAL: Cranial nerves II through XII grossly intact. Normal speech, gait not observed. PSYCH: Normal mood, normal affect. SKIN: Warm, dry, normal turgor, no rashes or lesions noted Laboratory Results - last 24 hr 04/06/17 14:15 Sodium 143 Potassium 3.6 D Chloride 104 Carbon Dioxide 24 Anion Gap 15 BUN 14 Creatinine 0.6 Random Glucose 70 L Calcium 8.9 Active Medications Generic Name Dose Route Start Last Admin Trade Name Freq PRN Reason Stop Dose Admin Amlodipine Besylate 10 mg 04/05/17 17:45 04/06/17 10:32 Norvasc - PO 10 mg DAILY [facility] Administration Docusate Sodium 100 mg 04/05/17 22:00 04/07/17 05:57 Colace - PO Not Given TID K[facility]NA Heparin Sodium (Porcine) 5,000 unit 04/05/17 18:00 04/07/17 02:10 Heparin - SQ 5,000 unit Q8H-IV [facility] Administration Hydralazine HCl 10 mg 04/05/17 21:00 Apresoline Injection - IVPUSH Q6H PRN HYPERTENSION Dextrose/Sodium Chloride 1,000 mls @ 83 mls/hr 04/06/17 15:55 04/06/17 16:00 D5-Ns - IV 83 mls/hr ASDIR KATERYNA Administration Losartan Potassium 25 mg 04/07/17 10:00 Cozaar - PO DAILY [facility] Metoprolol Tartrate 5 mg 04/05/17 15:49 04/05/17 16:49 Lopressor Injection - IVPUSH 5 mg Q4H PRN Administration HYPERTENSION Morphine Sulfate 2 mg 04/05/17 14:01 04/07/17 02:22 Morphine Injection - IVPUSH 2 mg Q4H PRN Administration PAIN Ondansetron HCl 4 mg 04/05/17 14:01 Zofran Injection IVPUSH Q6H PRN NAUSEA Polyethylene Glycol 17 gm 04/06/17 10:00 04/06/17 12:13 Miralax (For Daily Use) - PO 17 gm DAILY [facility] Administration ASSESSMENT/PLAN:
[2017-04-06 14:46] LABS: ANION GAP 15 (8-16); CALCIUM 8.9 mg/dL (8.5-10.1); CO2 24 mmol/L (21-32); CREATININE 0.6 mg/dL (0.55-1.02); GLUCOSE,RANDOM 70 mg/dL (74-106)
[2017-04-06] MEDS: morphine CARPU-JECT 2 MG/1 ML DISP.SYRIN IVPUSH PRN (15:43)
[2017-04-06] MEDS: DEXTROSE 5%-NORMAL SALINE 1,000 ML IV SCH (16:00)
--- NOTE | 2017-04-06 16:33 | PN ---
Teaching Attending Note Name of Resident: Oh Godinez ATTENDING PHYSICIAN STATEMENT I saw and evaluated the patient. I reviewed the resident's note and discussed the case with the resident. I agree with the resident's findings and plan as documented. SUBJECTIVE: 61 year old woman with a history of HTN, hyperthyroidism presented complaining of abdominal pain. She has had pain for about 2 weeks. The pain is left sided. + nausea/vomiting fo the last 3 days. Currently feels better. Denied fever or chills. OBJECTIVE: Last Vital Signs Temp Pulse Resp BP Pulse Ox 98.9 F 64 18 149/87 97 04/06/17 14:17 04/06/17 14:17 04/06/17 14:17 04/06/17 14:17 04/06/17 09:00 Abnormal Lab Results 04/05/17 04/05/17 04/06/17 11:49 16:39 06:15 MCV 78.6 L PT with INR INR PTT (Actin FS) Potassium Random Glucose Lactic Acid 3.0 H* AST Ur Specific Rupert >= 1.030 H Urine Protein 2+ H Urine Ketones 1+ H 04/06/17 04/06/17 04/06/17 06:15 06:15 14:15 MCV PT with INR 13.00 H INR 1.15 H PTT (Actin FS) 55.8 H Potassium 2.8 L* Random Glucose 70 L Lactic Acid AST 11 L D Ur Specific Rupert Urine Protein Urine Ketones CT of abdomen showed thickened gallbladder wall with cholelithiasis. ASSESSMENT AND PLAN: #Abdominal pain 2/2 to acute cholecystitis as seen on Abdominal CT. Planned for cholecystectomy. -blood cultures -IV fluid hydration -pain management -levofloxacin 750mg IV daily -metronidazole 500mg IV q8hrs -NPO past MN #hypokalemia -likely 2/2 vomiting -improved after K supplementation #HTN -continue home meds #DVT ppx -heparin sc
[2017-04-07] MEDS: HEPARIN NA (PORCINE) 5,000 UNITS/ML 1ML VIAL SQ SCH ×2 (02:10→09:18)
[2017-04-07] MEDS: morphine CARPU-JECT 2 MG/1 ML DISP.SYRIN IVPUSH PRN (02:22)
[2017-04-07] MEDS: DOCUSATE SODIUM 100 MG CAPSULE (FP) PO SCH ×3 (05:57→22:29)
[2017-04-07 07:49] LABS: MCH 26.4 pg (25.7-33.7); MCHC 33.9 g/dl (32.0-36.0); PLATELET COUNT 214 K/MM3 (134-434); WHITE BLOOD COUNT 5.5 K/mm3 (4.0-10.0)
[2017-04-07 07:55] LABS: INR 1.21 (0.82-1.09); PROTHROMBIN TIME (PATIENT) 13.7 SEC (9.98-11.88)
[2017-04-07 07:58] LABS: ACTIVATED PTT 43.8 SECONDS (26.9-34.4)
[2017-04-07 08:06] LABS: ALK PHOS 49 U/L (45-117); ANION GAP 10 (8-16); BILIRUBIN,TOTAL 0.6 mg/dL (0.2-1.0); CO2 24 mmol/L (21-32); CREATININE 0.6 mg/dL (0.55-1.02); GLUCOSE,RANDOM 80 mg/dL (74-106); MAGNESIUM 1.9 mg/dL (1.8-2.4); PHOSPHOROUS 3.2 mg/dL (2.5-4.9); SGOT/AST 9 U/L (15-37); SGPT/ALT 12 U/L (12-78); TOT PROT 5.7 g/dl (6.4-8.2)
--- NOTE | 2017-04-07 08:08 | PN ---
Physical Exam: SUBJECTIVE: Pt resting comfortably in bed. Consent was obtained by Dr. Go for anticipatory laparascopic cholecystecomy with possible open around midday. Pt has no new complaints. OBJECTIVE: Vital Signs Period Temp Pulse Resp BP Sys/Cabrera Pulse Ox Last 24 Hr 98.3 F-99.5 F 62-86 18-18 135-167/87-98 97-99 GENERAL: The patient is awake, alert, and fully oriented, in no acute distress. LUNGS: CTA bilaterally, no wheezes, rales, rhonchi noted. No accessory muscle use. HEART: RRR, S1 and S2 present without murmur ABDOMEN: Soft, non-distended, tenderness with RUQ>RLQ, no guarding or rebound. + Garcia's sign. No hepatomegaly appreciated through percussion. No splenomegaly appreciated. Lower hemisphere midline scar noted. EXTREMITIES: 2+ distal pulses throughout. Keloid scars on R knee noted. No edema appreciated NEUROLOGICAL: Alert and oriented x3. Strength 5/5 throughout. Non-focal. SKIN: No rashes noted. Lesions/scars noted as above Laboratory Results - last 24 hr 04/06/17 04/07/17 04/07/17 14:15 05:18 05:18 WBC 5.5 D RBC 4.36 Hgb 11.5 D Hct 34.0 MCV 78.0 L MCH 26.4 MCHC 33.9 RDW 15.0 Plt Count 214 MPV 9.0 PT with INR 13.70 H INR 1.21 H PTT (Actin FS) 43.8 H Sodium 143 Potassium 3.6 D Chloride 104 Carbon Dioxide 24 Anion Gap 15 BUN 14 Creatinine 0.6 Random Glucose 70 L Calcium 8.9 Active Medications Generic Name Dose Route Start Last Admin Trade Name Freq PRN Reason Stop Dose Admin Amlodipine Besylate 10 mg 04/05/17 17:45 04/06/17 10:32 Norvasc - PO 10 mg DAILY KATERYNA Administration Docusate Sodium 100 mg 04/05/17 22:00 04/07/17 05:57 Colace - PO Not Given TID KATERYNA Heparin Sodium (Porcine) 5,000 unit 04/05/17 18:00 04/07/17 02:10 Heparin - SQ 5,000 unit Q8H-IV KATERYNA Administration Hydralazine HCl 10 mg 04/05/17 21:00 Apresoline Injection - IVPUSH Q6H PRN HYPERTENSION Dextrose/Sodium Chloride 1,000 mls @ 83 mls/hr 04/06/17 15:55 04/06/17 16:00 D5-Ns - IV 83 mls/hr ASDIR KATERYNA Administration Losartan Potassium 25 mg 04/07/17 10:00 Cozaar - PO DAILY KATERYNA Metoprolol Tartrate 5 mg 04/05/17 15:49 04/05/17 16:49 Lopressor Injection - IVPUSH 5 mg Q4H PRN Administration HYPERTENSION Morphine Sulfate 2 mg 04/05/17 14:01 04/07/17 02:22 Morphine Injection - IVPUSH 2 mg Q4H PRN Administration PAIN Ondansetron HCl 4 mg 04/05/17 14:01 Zofran Injection IVPUSH Q6H PRN NAUSEA Polyethylene Glycol 17 gm 04/06/17 10:00 04/06/17 12:13 Miralax (For Daily Use) - PO 17 gm DAILY KATERYNA Administration ASSESSMENT/PLAN: 61yo F with history of HTN and hyperthyroidism s/p ablation therapy found to have abdominal pain 2/2 cholelithiasis found on Abd US and CT w/ IV contrast ( with GB wall thickening and prominent hepatic and CBD. Dr. Go consulted with recommendations for laparoscopic cholecystectomy possible open for tomorrow. 1) Chronic cholecystitis; acute exacerbation --Dr. Go consulted - recommends surgical intervention --NPO except for meds --Laparscopic cholecystectomy with possible open planned for today. --Zofran PRN for nausea. 2) Hypokalemia --Pt potassium 3.1 --Replete with KCl 40mEq PO once with tiny sip of water --Will run KCl 10mEq x3 bags IV 3) Hypertension --Cardiology consulted: Continue Norvasc 10mg Continue Losartan 25mg qdaily --Continue Hydralazine 10mg IVP q6 PRN --Continue Lopressor 5mg IVP q4 PRN FEN: Fluids: D5-Normal Saline @75cc/hr Electrolyte abnormality: Hypokalemia; repleted Nutrition: NPO; post-op diet per Dr. Go Ppx DVT - Heparin 5000U TID SQ Case discussed with Dr. Rosaura Godinez, DO - Internal Medicine PGY-1 Visit type - Emergency Visit Emergency Visit: No - New Patient This patient is new to me today: No - Critical Care Critical Care patient: No
[2017-04-07] MEDS ORDERED: POTASSIUM CHLORIDE 30 MEQ in SODIUM CHLORIDE 250 ML IVPB ONE (09:00)
[2017-04-07] MEDS: amLODIPine BESYLATE 10 MG TABLET (FP) PO SCH (09:19)
[2017-04-07] MEDS: POLYETHYLENE GLYCOL 3350 119 GM BTL PO SCH (09:19)
[2017-04-07] MEDS ORDERED: LOSARTAN POTASSIUM 25 MG TABLET PO SCH (10:00)
--- NOTE | 2017-04-07 10:24 | PN ---
Progress Note, Physician Chief Complaint: Feels well Planned for surgery today History of Present Illness: 61 year old female with a pmhx of htn and hyperthyroidism (AC ablation) presenting with two weeks of abdominal pain. 03/21 left sided abdominal pain to back. +vomiting for 3 days. +intermittent RUQ abdominal pain. No chest pain. No sob. No palpitations. +subj fevers. Abd US demonstrated multiple gallstones with mild thickening of the gallbladder wall without evidence of pericholecystic free fluid EKG: sinus rhythm with LVH Hypertensive in ER. No headache or change in vision. - Current Medication List Current Medications: Active Medications Amlodipine Besylate (Norvasc -) 10 mg PO DAILY [facility] Last Admin: 04/07/17 09:19 Dose: 10 mg Docusate Sodium (Colace -) 100 mg PO TID [facility] Last Admin: 04/07/17 05:57 Dose: Not Given Heparin Sodium (Porcine) (Heparin -) 5,000 unit SQ Q8H-IV KATERYNA Last Admin: 04/07/17 09:18 Dose: Not Given Hydralazine HCl (Apresoline Injection -) 10 mg IVPUSH Q6H PRN PRN Reason: HYPERTENSION Dextrose/Sodium Chloride (D5-Ns -) 1,000 mls @ 83 mls/hr IV ASDIR [facility] Last Admin: 04/06/17 16:00 Dose: 83 mls/hr Potassium Chloride 30 meq/ (Sodium Chloride) 265 mls @ 88.333 mls/hr IVPB ONCE ONE Stop: 04/07/17 11:59 Last Admin: 04/07/17 09:57 Dose: 88.333 mls/hr Losartan Potassium (Cozaar -) 25 mg PO DAILY [facility] Last Admin: 04/07/17 09:18 Dose: 25 mg Metoprolol Tartrate (Lopressor Injection -) 5 mg IVPUSH Q4H PRN PRN Reason: HYPERTENSION Last Admin: 04/05/17 16:49 Dose: 5 mg Morphine Sulfate (Morphine Injection -) 2 mg IVPUSH Q4H PRN PRN Reason: PAIN Last Admin: 04/07/17 02:22 Dose: 2 mg Ondansetron HCl (Zofran Injection) 4 mg IVPUSH Q6H PRN PRN Reason: NAUSEA Polyethylene Glycol (Miralax (For Daily Use) -) 17 gm PO DAILY [facility] Last Admin: 04/07/17 09:19 Dose: Not Given Potassium Chloride (K-Dur -) 40 meq PO ONCE ONE Stop: 04/07/17 10:20 - Objective Vital Signs: Vital Signs Temperature 98.5 F 04/07/17 06:00 Pulse Rate 63 04/07/17 06:00 Respiratory Rate 18 04/07/17 06:00 Blood Pressure 147/89 04/07/17 06:00 O2 Sat by Pulse Oximetry (%) 99 04/06/17 21:00 Constitutional: Yes: No Distress Cardiovascular: Yes: Regular Rate and Rhythm, S1, S2 Respiratory: Yes: CTA Bilaterally Gastrointestinal: Yes: Normal Bowel Sounds, Soft Edema: No Labs: CBC, BMP 04/07/17 05:18 04/07/17 05:18 INR, PTT INR 1.21 (0.82-1.09) H 04/07/17 05:18 Problem List - Problems (1) Hypertensive urgency Code(s): I16.0 - HYPERTENSIVE URGENCY (2) Left sided abdominal pain Code(s): R10.9 - UNSPECIFIED ABDOMINAL PAIN Assessment/Plan 61 year old female with a pmhx of htn and hyperthyroidism (AC ablation) presenting with two weeks of abdominal pain. 03/21 left sided abdominal pain to back. +vomiting for 3 days. +intermittent RUQ abdominal pain. No chest pain. No sob. No palpitations. +subj fevers. Abd US demonstrated multiple gallstones with mild thickening of the gallbladder wall without evidence of pericholecystic free fluid EKG: sinus rhythm with LVH Hypertensive in ER. No headache or change in vision. 1) HTN -patient with abdominal pain and found to have gallstones. CT abd with normal aortic dimensions. No adrenal mass. Pain control -BP is improved on amlodipine 10mg but could improve little more. Patient reports was always on two meds in past. On losartan 25mg but would likely need to increase to 50mg EKG with sinus rhythm 90s and lvh Echocardiogram with mild lvh, nl lvef, and no significant valve disease 2) Preop Patient is planned for surgery for gallstones. Denies any chest pain or dyspnea. Says up until abdominal pain could walk miles with no complaints. EKG with no ischemic changes. Echocardiogram with normal lvef and no significant valve disease. Patient is at intermediate cardiac risk for intermediate risk surgery. Will sign off at this time. Please call if needed
[2017-04-07] MEDS ORDERED: POTASSIUM CHLORIDE TABS 20 MEQ TABLET.ER (FP) PO ONE (11:15)
[2017-04-07] MEDS ORDERED: PHYTONADIONE 5 MG TABLET PO ONE (11:15)
[2017-04-07] MEDS ORDERED: MEROPENEM 500 MG VIAL (RESTRICTED TO ID) IVPB ONE (14:20)
--- NOTE | 2017-04-07 14:30 | PN ---
Teaching Attending Note Name of Resident: Oh Godinez ATTENDING PHYSICIAN STATEMENT I saw and evaluated the patient. I reviewed the resident's note and discussed the case with the resident. I agree with the resident's findings and plan as documented. SUBJECTIVE: Patient with no new complaints. OBJECTIVE: Last Vital Signs Temp Pulse Resp BP Pulse Ox 98.2 F 63 18 151/77 99 04/07/17 13:57 04/07/17 13:57 04/07/17 13:57 04/07/17 13:57 04/06/17 21:00 general -comfortable, nad neck -supple cv-s1+s2+ RRR chest- cta b/l abdomen- mild discomfort to palpation of RUQ ext- no edema Skin- no rashes appreciated Abnormal Lab Results 04/06/17 04/07/17 04/07/17 14:15 05:18 05:18 MCV 78.0 L PT with INR INR PTT (Actin FS) Potassium 3.1 L Chloride 109 H Random Glucose 70 L Calcium 8.0 L AST 9 L Total Protein 5.7 L Albumin 3.0 L 04/07/17 05:18 MCV PT with INR 13.70 H INR 1.21 H PTT (Actin FS) 43.8 H Potassium Chloride Random Glucose Calcium AST Total Protein Albumin transthoracic echo report reviewed CT of abdomen showed thickened gallbladder wall with cholelithiasis. ASSESSMENT AND PLAN: ASSESSMENT AND PLAN: #Abdominal pain 2/2 to acute cholecystitis as seen on Abdominal CT. Planned for cholecystectomy today. Medial risk stratification appreciated. After discussion with surgery, no need for antibiotics as systemic infection is not evident. -f/u blood cultures -surgery today -IV fluid hydration -NPO #hypokalemia -likely 2/2 vomiting -supplement K PRN #HTN -continue home meds #DVT ppx -heparin sc
[2017-04-07] MEDS ORDERED: MIDAZOLAM HCL 2 MG/2 ML SINGLE DOSE VIAL ONE (15:41)
[2017-04-07] MEDS ORDERED: LIDOCAINE HCL/PF 2% SDV 5ML VIAL ONE (16:03)
[2017-04-07] MEDS ORDERED: BUPIVACAINE HCL/PF 0.5% (5MG/ML) 10 ML VIAL ONE (16:07)
[2017-04-07] MEDS ORDERED: ceFAZolin SODIUM 1 GM VIAL ONE (16:12)
[2017-04-07] MEDS ORDERED: MEROPENEM 500 MG VIAL (RESTRICTED TO ID) IVPB SCH (16:30)
[2017-04-07] MEDS ORDERED: DEXAMETHASONE SOD PHOSPHATE 4 MG/1 ML VIAL ONE (16:35)
[2017-04-07] MEDS ORDERED: METOPROLOL TARTRATE 5 MG/5 ML VIAL ONE (16:56)
[2017-04-07] MEDS ORDERED: hydrALAZINE HCL 20 MG/ML VIAL ONE (17:06)
[2017-04-07] MEDS ORDERED: ROCURONIUM BROMIDE 50 MG/5 ML VIAL ONE (17:50)
[2017-04-07] MEDS ORDERED: MEROPENEM 1 GM in DEXTROSE 5%-WATER - 100 ML IVPB SCH (18:00)
[2017-04-07] MEDS ORDERED: MEROPENEM 500 MG in DEXTROSE 5%-WATER - 100 ML IVPB SCH (18:00)
[2017-04-07] MEDS ORDERED: BENZOIN/ALOE VERA/STORAX/TOLU 58 ML BOTTLE ONE (18:27)
[2017-04-07] MEDS ORDERED: NEOSTIGMINE METHYLSULFATE 0.5 MG/ML - 10 ML MDV ONE (18:27)
[2017-04-07] MEDS ORDERED: GLYCOPYRROLATE 0.2 MG/1 ML VIAL ONE (18:27)
[2017-04-07] MEDS ORDERED: KETOROLAC TROMETHAMINE 30 MG/1 ML VIAL ONE (18:42)
--- NOTE | 2017-04-07 19:08 | SURG ---
Surgery Spa Therapist Note Spa Therapist: Shamika Martin PA-C Date of Service: 04/07/17 Diagnosis: cholecystitis, cholelithiasis Procedure: lapprascopic cholecystitis I was present for the entirety of the operative procedure. For further detail, please refer to operative report. <Shamika Martin - Last Filed: 04/07/17 19:05> Spa Therapist: Shamika Martin PA-C Date of Service: 04/07/17 Diagnosis: chronic cholecystitis Procedure: laparoscopic cholecystectomy I was present for the entirety of the operative procedure. For further detail, please refer to operative report. <Jorgito Go - Last Filed: 04/07/17 19:36> Visit type - Case Type Case Type: ED Admission - Emergency Emergency Visit: Yes ED Registration Date: 04/05/17 Care time: The patient presented to the Emergency Department on the above date and was hospitalized for further evaluation of their emergent condition. - New patient This patient is new to me today: Yes Date on this admission: 04/07/17 <Shamika Martin - Last Filed: 04/07/17 19:05>
--- NOTE | 2017-04-07 19:12 | OP ---
Operative Note - Note: Operative Date: 04/07/17 Pre-Operative Diagnosis: chronic cholecystitis Operation: laparoscopic cholecystectomy Findings: multiple adhesions of omentum, fat and bowel to anterior abdominal wall, liver and gallbladder; additional left-sided port needed to take down initially to expose RUQ; critical view identified; multiple stones palpable in gallbladder Post-Operative Diagnosis: Same as Pre-op Surgeon: Jorgito Go [employer] Supervisor: Shamika Martin (chacha/Alba) Anesthesiologist/LEVEL GLASS VIAL FILLER: Kenton Hines Anesthesia: General, Local (20ml 0.5% marcaine) Specimens Removed: gallbladder to pathology Estimated Blood Loss (mls): 5 Fluid Volume Replaced (mls): 1,400 (crystalloid) Operative Report Dictated: Yes
[2017-04-07] MEDS ORDERED: ACETAMINOPHEN 325 MG TABLET (FP) PO PRN (19:16)
[2017-04-07] MEDS ORDERED: oxyCODONE HCL 5 MG TABLET PO PRN (19:16)
[2017-04-07] MEDS ORDERED: morphine CARPU-JECT 8 MG/1 ML DISP.SYRIN IVPUSH PRN ×2 (19:19→21:34)
[2017-04-07] MEDS ORDERED: PROMETHAZINE HCL 25 MG/1 ML VIAL IVPUSH PRN (19:34)
[2017-04-07] MEDS ORDERED: ONDANSETRON 4 MG/2 ML VIAL IVPUSH PRN ×2 (19:34→21:34)
[2017-04-07] MEDS ORDERED: LACTATED RINGERS SOLUTION 1,000 ML IV SCH (19:45)
[2017-04-07] MEDS ORDERED: METOPROLOL TARTRATE 5 MG/5 ML VIAL IVPUSH PRN (21:34)
[2017-04-07] MEDS ORDERED: hydrALAZINE HCL 20 MG/ML VIAL IVPUSH PRN (21:34)
[2017-04-07] MEDS: LACTATED RINGERS SOLUTION 1,000 ML IV SCH (22:29)
[2017-04-08] MEDS: LACTATED RINGERS SOLUTION 1,000 ML IV SCH (01:41)
[2017-04-08] MEDS: MEROPENEM 1 GM in DEXTROSE 5%-WATER - 100 ML IVPB SCH ×2 (01:41→10:45)
[2017-04-08] MEDS: HEPARIN NA (PORCINE) 5,000 UNITS/ML 1ML VIAL SQ SCH ×4 (01:42→18:27)
[2017-04-08] MEDS: DOCUSATE SODIUM 100 MG CAPSULE (FP) PO SCH ×3 (06:46→21:34)
[2017-04-08 07:26] LABS: MCH 26.7 pg (25.7-33.7); MCHC 33.7 g/dl (32.0-36.0); MEAN CELL VOLUME 79.1 fl (80-96); MEAN PLT VOLUME 9.5 fl (7.5-11.1); PLATELET COUNT 177 K/MM3 (134-434); RDW 14.9 % (11.6-15.6); WHITE BLOOD COUNT 8.8 K/mm3 (4.0-10.0)
[2017-04-08 07:52] LABS: ALBUMIN 2.9 g/dl (3.4-5.0); ANION GAP 10 (8-16); CALCIUM 8.2 mg/dL (8.5-10.1); CO2 25 mmol/L (21-32); GLUCOSE,RANDOM 73 mg/dL (74-106); MAGNESIUM 1.8 mg/dL (1.8-2.4)
[2017-04-08] MEDS: ACETAMINOPHEN 325 MG TABLET (FP) PO PRN ×3 (07:56→20:58)
[2017-04-08] MEDS: oxyCODONE HCL 5 MG TABLET PO PRN ×2 (07:56→20:57)
[2017-04-08 07:57] LABS: ALK PHOS 48 U/L (45-117); BILIRUBIN,TOTAL 0.8 mg/dL (0.2-1.0); CREATININE 0.6 mg/dL (0.55-1.02); PHOSPHOROUS 4.7 mg/dL (2.5-4.9); SGOT/AST 25 U/L (15-37); SGPT/ALT 20 U/L (12-78); TOT PROT 5.6 g/dl (6.4-8.2)
[2017-04-08] MEDS: amLODIPine BESYLATE 10 MG TABLET (FP) PO SCH (10:42)
[2017-04-08] MEDS: LOSARTAN POTASSIUM 25 MG TABLET PO SCH (10:42)
[2017-04-08] MEDS: POLYETHYLENE GLYCOL 3350 119 GM BTL PO SCH (10:43)
[2017-04-08] MEDS: DEXTROSE 5%-NORMAL SALINE 1,000 ML IV SCH (10:46)
--- NOTE | 2017-04-08 11:32 | PN ---
Progress Note (short form) - Note Progress Note: Anesthesia post op note POD#1. S/P Lap cholecystectomy. Pat seen and examined. VSS. No apparent post anesthesia complications.Signed off.
--- NOTE | 2017-04-08 12:19 | PN ---
Progress Note, Physician Chief Complaint: LLQ and RUQ pain History of Present Illness: s/p maliha diane yesterday Pt seen and examined in bed. Pt sleepy but awake, having some pain RUQ and incisional, did not want breakfast because they sent "fried food" and "too much." Concerned about dietitian's cautions against acidic foods (did not want apple juice or OJ) and fried foods. Wants ice chips, maybe crackers, maybe cranberry juice. Kind of hungry, but worried about eating yet. Had tylenol and oxycodone this morning. Passing gas, no new BM yet. Had some blood with wiping when cleaning up, does report h/o hemorrhoids. Burping also. Using IS. - Current Medication List Current Medications: Active Medications Acetaminophen (Tylenol -) 650 mg PO Q6H PRN PRN Reason: PAIN Last Admin: 04/08/17 07:56 Dose: 650 mg Amlodipine Besylate (Norvasc -) 10 mg PO DAILY [facility] Last Admin: 04/08/17 10:42 Dose: 10 mg Docusate Sodium (Colace -) 100 mg PO TID [facility] Last Admin: 04/08/17 06:46 Dose: 100 mg Heparin Sodium (Porcine) (Heparin -) 5,000 unit SQ Q8H-IV KATERYNA Last Admin: 04/08/17 10:42 Dose: 5,000 unit Hydralazine HCl (Apresoline Injection -) 10 mg IVPUSH Q6H PRN PRN Reason: HYPERTENSION Lactated Ringer's (Lactated Ringers Solution) 1,000 mls @ 125 mls/hr IV ASDIR [facility] Last Admin: 04/08/17 01:41 Dose: 125 mls/hr Meropenem 1 gm/ Dextrose 100 mls @ 100 mls/hr IVPB Q8H-IV KATERYNA PRN Reason: Protocol Last Admin: 04/08/17 10:45 Dose: 100 mls/hr Losartan Potassium (Cozaar -) 25 mg PO DAILY [facility] Last Admin: 04/08/17 10:42 Dose: 25 mg Metoprolol Tartrate (Lopressor Injection -) 5 mg IVPUSH Q4H PRN PRN Reason: HYPERTENSION Morphine Sulfate (Morphine Sulfate) 2 mg IVPUSH Q3H PRN PRN Reason: SEVERE PAIN Last Admin: 04/08/17 00:52 Dose: 2 mg Ondansetron HCl (Zofran Injection) 4 mg IVPUSH Q6H PRN PRN Reason: NAUSEA Oxycodone HCl (Roxicodone -) 5 mg PO Q6H PRN PRN Reason: SEVERE PAIN Last Admin: 04/08/17 07:56 Dose: 5 mg Polyethylene Glycol (Miralax (For Daily Use) -) 17 gm PO DAILY [facility] Last Admin: 04/08/17 10:43 Dose: 17 gm - Objective Vital Signs: Vital Signs Temperature 98.1 F 04/08/17 06:00 Pulse Rate 68 04/08/17 06:00 Respiratory Rate 20 04/08/17 06:00 Blood Pressure 146/68 04/08/17 06:00 O2 Sat by Pulse Oximetry (%) 98 04/07/17 21:00 Vital Signs Period Temp Pulse Resp BP Sys/Cabrera Pulse Ox Last 24 Hr 98 F-99.5 F 63-92 16-20 108-172/53-85 98-100 Intake & Output 04/07/17 04/08/17 04/08/17 23:59 07:59 15:59 Intake Total 900 1370 300 Output Total 5 800 Balance 895 570 300 Intake: IV 900 1250 Lactated Ringers Solution 500 1250 1,000 ml @ 125 mls/hr IV ASDIR KATERYNA Rx#: [id number] Oral 0 120 300 Output: Urine 0 800 Void 800 Estimated Blood Loss 5 Other: Voiding Method Bedpan Toilet # Unmeasured Voids Void 0 1 Bowel Movement No No No Constitutional: Yes: No Distress, Calm, Thin Eyes: Yes: Conjunctiva Clear, EOM Intact Cardiovascular: Yes: Regular Rate and Rhythm, Murmur Respiratory: Yes: Regular, CTA Bilaterally, On Nasal O2 Gastrointestinal: Yes: Normal Bowel Sounds, Soft, Distention, Tenderness (RUQ, less RLQ, also incisional, no guarding or rebound) Extremities: No: Cool, Cyanosis Edema: No Integumentary: Yes: Incision (x5, dressed). No: Jaundice, Rash Wound/Incision: Yes: Steri Strips (under dressings), Dressing Dry and Intact (x5 ) Neurological: Yes: Alert, Oriented Psychiatric: Yes: Alert, Oriented, Other (mildly anxious, mildly lethargic) Labs: CBC, BMP 04/08/17 06:00 04/08/17 06:00 CMP Sodium 140 mmol/L (136-145) 04/08/17 06:00 Potassium 3.9 mmol/L (3.5-5.1) D 04/08/17 06:00 Chloride 105 mmol/L (98-107) 04/08/17 06:00 Carbon Dioxide 25 mmol/L (21-32) 04/08/17 06:00 Anion Gap 10 (8-16) 04/08/17 06:00 BUN 11 mg/dL (7-18) 04/08/17 06:00 Creatinine 0.6 mg/dL (0.55-1.02) 04/08/17 06:00 Creat Clearance w eGFR > 60 (>60) 04/08/17 06:00 Random Glucose 73 mg/dL (74-106) L 04/08/17 06:00 Lactic Acid 1.4 mmol/L (0.4-2.0) 04/05/17 20:15 Calcium 8.2 mg/dL (8.5-10.1) L 04/08/17 06:00 Phosphorus 4.7 mg/dL (2.5-4.9) D 04/08/17 06:00 Magnesium 1.8 mg/dL (1.8-2.4) 04/08/17 06:00 Total Bilirubin 0.8 mg/dL (0.2-1.0) D 04/08/17 06:00 AST 25 U/L (15-37) D 04/08/17 06:00 ALT 20 U/L (12-78) D 04/08/17 06:00 Alkaline Phosphatase 48 U/L (45-117) 04/08/17 06:00 Creatine Kinase 139 IU/L (26-192) 04/05/17 09:50 Troponin I < 0.02 ng/ml (0.00-0.05) 04/05/17 09:50 Total Protein 5.6 g/dl (6.4-8.2) L 04/08/17 06:00 Albumin 2.9 g/dl (3.4-5.0) L 04/08/17 06:00 Lipase 178 U/L (73-393) 04/06/17 06:15 Problem List - Problems (1) Calculus of gallbladder with chronic cholecystitis without obstruction Assessment/Plan: POD1 s/p laparoscopic cholecystectomy encourage OOB to chair and ambulation complete perioperative antibiotics this am encouraged light po - ok for regular diet, but may stick to light/full liquid type diet today ok to stop fluids when taking more po pain meds prn - strongly encourage nonnarcotics only DVT prophylaxis dressings off tomorrow other care per primary team Code(s): K80.10 - CALCULUS OF GALLBLADDER W CHRONIC CHOLECYST W/O OBSTRUCTION (2) Constipation Assessment/Plan: taking stool softeners encourage nonnarcotic pain meds now and at home Code(s): K59.00 - CONSTIPATION, UNSPECIFIED Qualifiers: Constipation type: drug induced constipation Qualified Code(s): K59.03 - Drug induced constipation; K59.03 - Drug induced constipation (3) Dehydration Assessment/Plan: resolved Code(s): E86.0 - DEHYDRATION (4) Uncontrolled hypertension Assessment/Plan: BP improved, cardiology consult noted now controlled with meds Code(s): I10 - ESSENTIAL (PRIMARY) HYPERTENSION
--- NOTE | 2017-04-08 13:44 | CON.ID ---
Consult Consult Specialty:: Infectious Disease Reason for Consultation:: Cholecystitis - History of Present Illness History of Present Illness: Asked to evaluate this 61 y.o. female with a history of HTN and hyperthyroidism who presented with c/o LLQ abdominal pain for the past 10-14 days. She was hospitalized at [facility] and and was discharged on pain medication. Since then had been having persistent abdominal pain with constipation and episodes of nausea and vomiting. Since admission noted to have RUQ tenderness with deep palpation on examination and Abd US and CT scan with findings consistent with gallstones and GB wall thickening. She is now s/p lap cholecytectomy POD #1. Currently she is afebrile and alert and without acute distress, although anxious. 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: Alzheimer's, CVA, Dementia, Migraine, Multiple Sclerosis, Peripheral Neuropathy, Parkinson's, Seizure, Syncope, TIA, Vertigo, Other Cardio/Vascular: Yes: HTN Pulmonary: No: Asthma, Bronchitis, Cancer, COPD, O2 Dependent, Pneumonia, Previously Intubated, Pulmonary Embolus, Pulmonary Fibrosis, Sleep Apnea, Other Gastrointestinal: Yes: Constipation Hepatobiliary: Yes: Cholelithiasis Renal/: No: Renal Inusuff Heme/Onc: No: Anemia, B12 Deficiency, Bleeding Disorder, Cancer, Current Chemotherapy, Current Radiation Therapy, Hemochromatosis, Hypercoaguable State, Myeloproliferative Synd, Sickle Cell Disease, Sickle Cell Trait, Thrombocytopenia, Other Infectious Disease: No: AIDS, C-Diff, Herpes Zoster, HIV, MRSA, STD's, Tuberculosis, VREF, Other Musculoskeletal: No: Bursitis, Chronic low back pain, Hemiparesis, Hemiplegia, Osteoarthritis, Paraplegia, Other Rheumatology: No: Fibromyalgia, Gout, Lupus, Rheumatoid Arthritis, Sarcoidosis, Vasculitis, Other Endocrine: Yes: Hyperthyroidism - Past Surgical History Past Surgical History: Yes: - Alcohol/Substance Use Hx Alcohol Use: Yes (Socially) History of Substance Use: reports: None - Smoking History Smoking history: Never smoked Have you smoked in the past 12 months: No Home Medications - Allergies Allergies/Adverse Reactions: Allergies Allergy/AdvReac Type Severity Reaction Status Date / Time ampicillin Allergy Verified 04/05/17 09:56 - Home Medications Home Medications: Ambulatory Orders NK [No Known Home Medication] 04/05/17 Family Disease History - Family Disease History Family Disease History: Diabetes: Grandparent, Mother, Sister Review of Systems - Review of Systems Constitutional: reports: Weakness HENT: reports: No Symptoms Neck: reports: No Symptoms Cardiovascular: reports: No Symptoms Respiratory: reports: No Symptoms Gastrointestinal: reports: Constipation Genitourinary: reports: No Symptoms Neurological: reports: No Symptoms Hematology/Lymphatic: reports: No Symptoms Physical Exam Vital Signs: Vital Signs Temperature 98.1 F 04/08/17 06:00 Pulse Rate 68 04/08/17 06:00 Respiratory Rate 20 04/08/17 06:00 Blood Pressure 146/68 04/08/17 06:00 O2 Sat by Pulse Oximetry (%) 98 04/07/17 21:00 Constitutional: Yes: Anxious Neck: Yes: Supple Cardiovascular: Yes: Regular Rate and Rhythm Respiratory: Yes: CTA Bilaterally Gastrointestinal: Yes: Soft Renal/: Yes: WNL Musculoskeletal: Yes: WNL Extremities: Yes: WNL Wound/Incision: Yes: Clean/Dry, Dressing Dry and Intact Neurological: Yes: Alert Labs: CBC, BMP 04/08/17 06:00 04/08/17 06:00 Imaging - Results Cat Scan: Report Reviewed Ultrasound: Report Reviewed Problem List - Problems (1) Calculus of gallbladder with chronic cholecystitis without obstruction Code(s): K80.10 - CALCULUS OF GALLBLADDER W CHRONIC CHOLECYST W/O OBSTRUCTION (2) Constipation Code(s): K59.00 - CONSTIPATION, UNSPECIFIED Qualifiers: Constipation type: drug induced constipation Qualified Code(s): K59.03 - Drug induced constipation; K59.03 - Drug induced constipation (3) Hypertension Code(s): I10 - ESSENTIAL (PRIMARY) HYPERTENSION Assessment/Plan Pt presenting with RUQ pain x 2wks /cholelithiasis with GB wall thickening Chronic Cholecytitis s/p lap cholecystectomy POD #1 Constipation - suggest Meropenem for now - monitor for signs of continued improvement Pt currently appears stable
[2017-04-08] MEDS ORDERED: MEROPENEM 500 MG in DEXTROSE 5%-WATER - 100 ML IVPB SCH (18:00)
[2017-04-08] MEDS ORDERED: MEROPENEM 500 MG VIAL (RESTRICTED TO ID) IVPB SCH (18:00)
[2017-04-09] MEDS: LACTATED RINGERS SOLUTION 1,000 ML IV SCH (02:15)
[2017-04-09] MEDS: ACETAMINOPHEN 325 MG TABLET (FP) PO PRN (02:53)
[2017-04-09] MEDS: HEPARIN NA (PORCINE) 5,000 UNITS/ML 1ML VIAL SQ SCH ×2 (02:53→11:10)
[2017-04-09] MEDS: oxyCODONE HCL 5 MG TABLET PO PRN (02:53)
[2017-04-09] MEDS: DOCUSATE SODIUM 100 MG CAPSULE (FP) PO SCH ×2 (05:35→14:38)
--- NOTE | 2017-04-09 09:39 | PN ---
Progress Note, Physician Chief Complaint: LLQ and RUQ pain History of Present Illness: s/p maliha contreras Pt seen and examined sitting up in chair, finishing breakfast. Pt had some to eat, but little. Not much appetite here. Will have Ensure. Had tylenol and oxycodone early this morning. Will take Tylenol now. No BM yet, but sat on toilet. Yesterday evening, had some more spotting from bottom - on inspection, had small pedunculated hemorrhoid with raw surface, no active bleeding. Ambulated yesterday but not all the way to [facility]. BP in acceptable range. - Current Medication List Current Medications: Active Medications Acetaminophen (Tylenol -) 650 mg PO Q6H PRN PRN Reason: PAIN Last Admin: 04/09/17 02:53 Dose: 650 mg Amlodipine Besylate (Norvasc -) 10 mg PO DAILY [facility] Last Admin: 04/08/17 10:42 Dose: 10 mg Docusate Sodium (Colace -) 100 mg PO TID [facility] Last Admin: 04/09/17 05:35 Dose: 100 mg Heparin Sodium (Porcine) (Heparin -) 5,000 unit SQ Q8H-IV KATERYNA Last Admin: 04/09/17 02:53 Dose: 5,000 unit Hydralazine HCl (Apresoline Injection -) 10 mg IVPUSH Q6H PRN PRN Reason: HYPERTENSION Lactated Ringer's (Lactated Ringers Solution) 1,000 mls @ 125 mls/hr IV ASDIR [facility] Last Admin: 04/09/17 02:15 Dose: Not Given Losartan Potassium (Cozaar -) 25 mg PO DAILY [facility] Last Admin: 04/08/17 10:42 Dose: 25 mg Metoprolol Tartrate (Lopressor Injection -) 5 mg IVPUSH Q4H PRN PRN Reason: HYPERTENSION Ondansetron HCl (Zofran Injection) 4 mg IVPUSH Q6H PRN PRN Reason: NAUSEA Oxycodone HCl (Roxicodone -) 5 mg PO Q6H PRN PRN Reason: SEVERE PAIN Last Admin: 04/09/17 02:53 Dose: 5 mg Polyethylene Glycol (Miralax (For Daily Use) -) 17 gm PO DAILY [facility] Last Admin: 04/08/17 10:43 Dose: 17 gm - Objective Vital Signs: Vital Signs Temperature 98.3 F 10/29/17 06:00 Pulse Rate 72 04/09/17 06:00 Respiratory Rate 20 04/09/17 06:00 Blood Pressure 147/84 04/09/17 06:00 O2 Sat by Pulse Oximetry (%) 97 04/08/17 21:00 Vital Signs Period Temp Pulse Resp BP Sys/Cabrera Pulse Ox Last 24 Hr 98.3 F-98.9 F 70-80 18-20 141-156/70-84 97-99 Constitutional: Yes: No Distress, Calm, Anxious (mildly), Thin Eyes: Yes: Conjunctiva Clear, EOM Intact Gastrointestinal: Yes: Normal Bowel Sounds, Soft, Distention (mild), Hemorrhoids , Tenderness (incisional, mostly midline, and RUQ, no R/G) ...Rectal Exam: Yes: Hemorrhoids/External (small pedunculated) Extremities: No: Cool, Cyanosis Edema: No Integumentary: Yes: Incision (x5). No: Jaundice, Rash Wound/Incision: Yes: Steri Strips (c/d/i x5), Dressing Dry and Intact (x5), Dressing Removed Neurological: Yes: Alert, Oriented Labs: no new labs Problem List - Problems (1) Calculus of gallbladder with chronic cholecystitis without obstruction Assessment/Plan: POD2 s/p laparoscopic cholecystectomy encourage OOB to chair and ambulation encouraged po - on chopped diet will get Ensure for her ok to stop fluids pain meds prn - strongly encourage nonnarcotics only DVT prophylaxis ok for d/c home with f/u in 2 wks instructions in d/c plan Code(s): K80.10 - CALCULUS OF GALLBLADDER W CHRONIC CHOLECYST W/O OBSTRUCTION (2) Constipation Assessment/Plan: taking stool softeners encourage nonnarcotic pain meds now and at home Code(s): K59.00 - CONSTIPATION, UNSPECIFIED Qualifiers: Constipation type: drug induced constipation Qualified Code(s): K59.03 - Drug induced constipation; K59.03 - Drug induced constipation (3) Uncontrolled hypertension Assessment/Plan: BP improved, cardiology consult noted now controlled with meds Code(s): I10 - ESSENTIAL (PRIMARY) HYPERTENSION
[2017-04-09] MEDS: LOSARTAN POTASSIUM 25 MG TABLET PO SCH (11:10)
[2017-04-09] MEDS: amLODIPine BESYLATE 10 MG TABLET (FP) PO SCH (11:10)
[2017-04-09] MEDS: POLYETHYLENE GLYCOL 3350 119 GM BTL PO SCH (11:12)
--- NOTE | 2017-04-09 14:31 | PN ---
Physical Exam: SUBJECTIVE: Patient seen and examined Patient is not tolerating the food at this time. Feels nauseas. OBJECTIVE: Vital Signs Temperature 98.1 F 04/08/17 06:00 Pulse Rate 68 04/08/17 06:00 Respiratory Rate 20 04/08/17 06:00 Blood Pressure 146/68 04/08/17 06:00 O2 Sat by Pulse Oximetry (%) 98 04/07/17 21:00 GENERAL: The patient is awake, alert, and fully oriented, in no acute distress. HEAD: Normal with no signs of trauma. EYES: PERRL, extraocular movements intact, sclera anicteric, conjunctiva clear. ENT: Ears normal, oropharynx clear without exudates, moist mucous membranes. NECK: Trachea midline, full range of motion, supple. LUNGS: Breath sounds equal, clear to auscultation bilaterally, no wheezes, no crackles, no accessory muscle use. HEART: Regular rate and rhythm, S1, S2 without murmur, rub or gallop. ABDOMEN: Soft, s/p lap.chol (x5 incisions) ,mild tenderness, nondistended, positive for bowel sounds, no guarding, no rebound, no hepatosplenomegaly, no masses appreciated. EXTREMITIES: 2+ pulses, warm, well-perfused, no edema. NEUROLOGICAL: Cranial nerves II through XII grossly intact. Normal speech, gait not observed. PSYCH: Normal mood, normal affect. SKIN: Warm, dry, normal turgor, no rashes or lesions noted Intake & Output 04/07/17 04/08/17 04/08/17 23:59 07:59 15:59 Intake Total 900 1370 300 Output Total 5 800 Balance 895 570 300 Intake: IV 900 1250 Lactated Ringers Solution 500 1250 1,000 ml @ 125 mls/hr IV ASDIR KATERYNA Rx#: [id number] Oral 0 120 300 Output: Urine 0 800 Void 800 Estimated Blood Loss 5 Other: Voiding Method Bedpan Toilet # Unmeasured Voids Void 0 1 Bowel Movement No No No CMP Sodium 140 mmol/L (136-145) 04/08/17 06:00 Potassium 3.9 mmol/L (3.5-5.1) D 04/08/17 06:00 Chloride 105 mmol/L (98-107) 04/08/17 06:00 Carbon Dioxide 25 mmol/L (21-32) 04/08/17 06:00 Anion Gap 10 (8-16) 04/08/17 06:00 BUN 11 mg/dL (7-18) 04/08/17 06:00 Creatinine 0.6 mg/dL (0.55-1.02) 04/08/17 06:00 Creat Clearance w eGFR > 60 (>60) 04/08/17 06:00 Random Glucose 73 mg/dL (74-106) L 04/08/17 06:00 Lactic Acid 1.4 mmol/L (0.4-2.0) 04/05/17 20:15 Calcium 8.2 mg/dL (8.5-10.1) L 04/08/17 06:00 Phosphorus 4.7 mg/dL (2.5-4.9) D 04/08/17 06:00 Magnesium 1.8 mg/dL (1.8-2.4) 04/08/17 06:00 Total Bilirubin 0.8 mg/dL (0.2-1.0) D 04/08/17 06:00 AST 25 U/L (15-37) D 04/08/17 06:00 ALT 20 U/L (12-78) D 04/08/17 06:00 Alkaline Phosphatase 48 U/L (45-117) 04/08/17 06:00 Creatine Kinase 139 IU/L (26-192) 04/05/17 09:50 Troponin I < 0.02 ng/ml (0.00-0.05) 04/05/17 09:50 Total Protein 5.6 g/dl (6.4-8.2) L 04/08/17 06:00 Albumin 2.9 g/dl (3.4-5.0) L 04/08/17 06:00 Lipase 178 U/L (73-393) 04/06/17 06:15 Transthoracic echo report reviewed CT of abdomen showed thickened gallbladder wall with cholelithiasis. ASSESSMENT AND PLAN: Patient is a 61 year old female with a pmhx of htn and hyperthyroidism (AC ablation) presenting with two weeks of abdominal pain. #Acute abdominal pain s/p lap chol. due to having acute cholecystitis as seen on Abdominal CT. continue IV fluid hydration #hypokalemia - due to vomiting ; supplement K PRN #HTN continue home meds #DVT ppx : heparin sc Visit type - Emergency Visit Emergency Visit: Yes ED Registration Date: 04/05/17 Care time: The patient presented to the Emergency Department on the above date and was hospitalized for further evaluation of their emergent condition. - New Patient This patient is new to me today: Yes Date on this admission: 04/08/17 - Critical Care Critical Care patient: No
--- NOTE | 2017-04-09 14:40 | DS ---
Physical Exam: SUBJECTIVE: Patient seen and examined PAtient is feeling better, tolerating diet, having pain as well. OBJECTIVE: Vital Signs Temperature 98.3 F 04/09/17 06:00 Pulse Rate 72 04/09/17 06:00 Respiratory Rate 20 04/09/17 06:00 Blood Pressure 147/84 04/09/17 06:00 O2 Sat by Pulse Oximetry (%) 97 04/08/17 21:00 PHYSICAL EXAM GENERAL: The patient is awake, alert, and fully oriented, in no acute distress. HEAD: Normal with no signs of trauma. EYES: PERRL, extraocular movements intact, sclera anicteric, conjunctiva clear. ENT: Ears normal, oropharynx clear without exudates, moist mucous membranes. NECK: Trachea midline, full range of motion, supple. LUNGS: Breath sounds equal, clear to auscultation bilaterally, no wheezes, no crackles, no accessory muscle use. HEART: Regular rate and rhythm, S1, S2 without murmur, rub or gallop. ABDOMEN: Soft, mild tenderness, nondistended, normoactive bowel sounds, no guarding, no rebound, no hepatosplenomegaly, no masses. EXTREMITIES: 2+ pulses, warm, well-perfused, no edema. NEUROLOGICAL: Cranial nerves II through XII grossly intact. Normal speech, gait not observed. PSYCH: Normal mood, normal affect. SKIN: Warm, dry, normal turgor, no rashes or lesions noted. LABS CBCD WBC 8.8 K/mm3 (4.0-10.0) D 04/08/17 06:00 RBC 4.18 M/mm3 (3.60-5.2) 04/08/17 06:00 Hgb 11.1 GM/dL (10.7-15.3) 04/08/17 06:00 Hct 33.1 % (32.4-45.2) 04/08/17 06:00 MCV 79.1 fl (80-96) L 04/08/17 06:00 MCHC 33.7 g/dl (32.0-36.0) 04/08/17 06:00 RDW 14.9 % (11.6-15.6) 04/08/17 06:00 Plt Count 177 K/MM3 (134-434) 04/08/17 06:00 MPV 9.5 fl (7.5-11.1) 04/08/17 06:00 CMP Sodium 140 mmol/L (136-145) 04/08/17 06:00 Potassium 3.9 mmol/L (3.5-5.1) D 04/08/17 06:00 Chloride 105 mmol/L (98-107) 04/08/17 06:00 Carbon Dioxide 25 mmol/L (21-32) 04/08/17 06:00 Anion Gap 10 (8-16) 04/08/17 06:00 BUN 11 mg/dL (7-18) 04/08/17 06:00 Creatinine 0.6 mg/dL (0.55-1.02) 04/08/17 06:00 Creat Clearance w eGFR > 60 (>60) 04/08/17 06:00 Random Glucose 73 mg/dL (74-106) L 04/08/17 06:00 Calcium 8.2 mg/dL (8.5-10.1) L 04/08/17 06:00 Total Bilirubin 0.8 mg/dL (0.2-1.0) D 04/08/17 06:00 AST 25 U/L (15-37) D 04/08/17 06:00 ALT 20 U/L (12-78) D 04/08/17 06:00 Alkaline Phosphatase 48 U/L (45-117) 04/08/17 06:00 Total Protein 5.6 g/dl (6.4-8.2) L 04/08/17 06:00 Albumin 2.9 g/dl (3.4-5.0) L 04/08/17 06:00 CARDIAC ENZYMES Creatine Kinase 139 IU/L (26-192) 04/05/17 09:50 Troponin I < 0.02 ng/ml (0.00-0.05) 04/05/17 09:50 Current Medications Generic Name Dose Route Start Last Admin Trade Name Freq PRN Reason Stop Dose Admin Acetaminophen 650 mg 04/07/17 21:34 04/09/17 02:53 Tylenol - PO 650 mg Q6H PRN Administration PAIN Amlodipine Besylate 10 mg 04/08/17 10:00 04/09/17 11:10 Norvasc - PO 10 mg DAILY KATERYNA Administration Docusate Sodium 100 mg 04/07/17 22:00 04/09/17 14:38 Colace - PO Not Given TID KATERYNA Heparin Sodium (Porcine) 5,000 unit 04/08/17 02:00 04/09/17 11:10 Heparin - SQ 5,000 unit Q8H-IV KATERYNA Administration Hydralazine HCl 10 mg 04/07/17 21:34 Apresoline Injection - IVPUSH Q6H PRN HYPERTENSION Lactated Ringer's 1,000 mls @ 125 mls/hr 04/07/17 21:34 04/09/17 02:15 Lactated Ringers Solution IV Not Given ASDIR KATERYNA Losartan Potassium 25 mg 04/08/17 10:00 04/09/17 11:10 Cozaar - PO 25 mg DAILY KATERYNA Administration Metoprolol Tartrate 5 mg 04/07/17 21:34 Lopressor Injection - IVPUSH Q4H PRN HYPERTENSION Ondansetron HCl 4 mg 04/07/17 21:34 Zofran Injection IVPUSH Q6H PRN NAUSEA Oxycodone HCl 5 mg 04/07/17 21:34 04/09/17 02:53 Roxicodone - PO 5 mg Q6H PRN Administration SEVERE PAIN Polyethylene Glycol 17 gm 04/08/17 10:00 04/09/17 11:12 Miralax (For Daily Use) - PO Not Given DAILY [facility] Home Medications Medication Instructions Recorded Acetaminophen [Tylenol .Regular 650 mg PO Q6H PRN #0 tablet 04/09/17 Strength -] Polyethylene Glycol 3350 [Miralax 17 gm PO DAILY bottle 04/09/17 119 gm Btl -] HOSPITAL COURSE: Date of Admission:04/05/17 Date of Discharge: 04/09/17 Patient is a 61 year old female with a pmhx of htn and hyperthyroidism (AC ablation) presenting with two weeks of abdominal pain. #POD #2 , ok to discharge the patient home today as per surgeon. s/p lap chol. due to having acute cholecystitis as seen on Abdominal CT. continues to have mild pain but at times are sharp, given Rx for Tramadol 25mg po q6h prn and asked the patient, not to use it if not needed since can aggrevate her constipation. Added Colace 300mg po qhs, and was suggested not to use Miralax for now, and soft sMALL portions at a time. No heavy lifting, follow up with in 2 weeks. If any issues please call 's office. #hypokalemia - due to vomiting ; supplement K PRN #HTN given Rx for Norvasc and Cozaar # C/o having Hemorroids was suggested to continue taking colace for now and not to use so much pain meds since can aggrevate her hemorroids. discharge patient home now. Minutes to complete discharge: 40 Discharge Summary Reason For Visit: CHOLECYSTITIS Current Active Problems DIANA (acute kidney injury) (Acute) Biliary colic (Acute) Calculus of gallbladder with chronic cholecystitis without obstruction (Acute) Cholecystitis (Acute) Constipation (Acute) DVT prophylaxis (Acute) Dehydration (Acute) Gallstones (Acute) Hypertension (Acute) Hypertensive urgency (Acute) Left sided abdominal pain (Acute) Uncontrolled hypertension (Acute) Condition: Improved - Instructions Diet, Activity, Other Instructions: Postoperative instructions: You had a laparoscopic cholecystectomy on 04/07/[address] Jorgito Go of [facility]. Activity: Resume your usual activities gradually, but no heavy exertion or lifting more than 10-15 pounds for 1 month. Sticky tapes will fall off by themselves. You may shower daily, just pat the incision areas dry. No bath or swimming.l Eat lightly at first, but advance to your usual diet as tolerated. Pain: For pain, you may use and alternate Tylenol (acetaminophen) and/or ibuprofen every 6 hours each as needed; this means that you can take one OR the other at 3-hour intervals. Try not to take narcotics or Tylenol/narcotic combination. Do not take more than 3000mg of acetaminophen in a day. Take medications as prescribed or indicated on the labeling. Follow-up: Call Dr. Go's office at [phone] to make your postop appointment (Monday ~2 weeks after surgery). Clinic is held in the Diagnostic [facility] on the first floor of [facility]. Call the office if you have: * increasing pain not responsive to pain medication * fever of 101F or higher * vomiting * unusual or increasing bleeding or drainage from wounds * increasing redness or swelling at wound sites * inability to urinate Also, see your primary medical doctor within 1-2 weeks. Referrals: Jorgito Go MD [Staff Physician] - 2 Weeks Disposition: HOME - Home Medications Comprehensive Discharge Medication List: Ambulatory Orders Acetaminophen [Tylenol .Regular Strength -] 650 mg PO Q6H PRN #0 tablet Polyethylene Glycol 3350 [Miralax 119 gm Btl -] 17 gm PO DAILY bottle 04/09/17 This patient is new to me today: No Emergency Visit: Yes ED Registration Date: 04/05/17 Care time: The patient presented to the Emergency Department on the above date and was hospitalized for further evaluation of their emergent condition. Critical Care patient: No - Discharge Referral Referred to [facility] No
[2017-04-09 14:51] VITALS: BP 140/70; PULSE 76; TEMP 98.2
--- NOTE | 2017-04-09 15:30 | PN ---
Progress Note, Physician History of Present Illness: Pt for discharge home today. She appears better today. Pain tolerable, able to eat. Remains afebrile and alert. - Current Medication List Current Medications: Active Medications Acetaminophen (Tylenol -) 650 mg PO Q6H PRN PRN Reason: PAIN Last Admin: 04/09/17 02:53 Dose: 650 mg Amlodipine Besylate (Norvasc -) 10 mg PO DAILY [facility] Last Admin: 04/09/17 11:10 Dose: 10 mg Docusate Sodium (Colace -) 100 mg PO TID [facility] Last Admin: 04/09/17 14:38 Dose: Not Given Heparin Sodium (Porcine) (Heparin -) 5,000 unit SQ Q8H-IV [facility] Last Admin: 04/09/17 11:10 Dose: 5,000 unit Hydralazine HCl (Apresoline Injection -) 10 mg IVPUSH Q6H PRN PRN Reason: HYPERTENSION Lactated Ringer's (Lactated Ringers Solution) 1,000 mls @ 125 mls/hr IV ASDIR [facility] Last Admin: 04/09/17 02:15 Dose: Not Given Losartan Potassium (Cozaar -) 25 mg PO DAILY [facility] Last Admin: 04/09/17 11:10 Dose: 25 mg Metoprolol Tartrate (Lopressor Injection -) 5 mg IVPUSH Q4H PRN PRN Reason: HYPERTENSION Ondansetron HCl (Zofran Injection) 4 mg IVPUSH Q6H PRN PRN Reason: NAUSEA Oxycodone HCl (Roxicodone -) 5 mg PO Q6H PRN PRN Reason: SEVERE PAIN Last Admin: 04/09/17 02:53 Dose: 5 mg Polyethylene Glycol (Miralax (For Daily Use) -) 17 gm PO DAILY [facility] Last Admin: 04/09/17 11:12 Dose: Not Given - Objective Vital Signs: Vital Signs Temperature 98.2 F 04/09/17 10:00 Pulse Rate 76 04/09/17 10:00 Respiratory Rate 18 04/09/17 10:00 Blood Pressure 140/70 04/09/17 10:00 O2 Sat by Pulse Oximetry (%) 97 04/08/17 21:00 Constitutional: Yes: No Distress, Calm Cardiovascular: Yes: Regular Rate and Rhythm Gastrointestinal: Yes: Soft (mild tenderness with palpation) Genitourinary: Yes: WNL Edema: No Wound/Incision: Yes: Dressing Dry and Intact Labs: CBC, BMP 04/08/17 06:00 04/08/17 06:00 INR, PTT INR 1.21 (0.82-1.09) H 04/07/17 05:18 Problem List - Problems (1) Calculus of gallbladder with chronic cholecystitis without obstruction Code(s): K80.10 - CALCULUS OF GALLBLADDER W CHRONIC CHOLECYST W/O OBSTRUCTION (2) Constipation Code(s): K59.00 - CONSTIPATION, UNSPECIFIED Qualifiers: Constipation type: drug induced constipation Qualified Code(s): K59.03 - Drug induced constipation; K59.03 - Drug induced constipation (3) Hypertension Code(s): I10 - ESSENTIAL (PRIMARY) HYPERTENSION Assessment/Plan s/p cholecystectomy stable off antibiotics for d/c home
--- NOTE | 2017-04-11 17:03 | PATH ---
Surgical Pathology Report Patient Name: KANDY YE Med. Rec. #: [id number] /Age/Gender: 1955 (Age: 61) / F Account: [id number] Location: [facility] MED/SURG Taken: 04/07/2017 Received: 04/10/2017 Reported: 04/11/2017 Physicians: Jorgito Go M.D. Specimen(s) Received GALLBLADDER Clinical History Chronic cholecystitis Final Diagnosis GALLBLADDER, LAPAROSCOPIC CHOLECYSTECTOMY: CHRONIC CHOLECYSTITIS AND CHOLELITHIASIS. Electronically Signed Yvrose Young M.D. Gross Description Received in formalin, labeled "gallbladder," is a 8.0 x 3.0 x 2.3 cm. gallbladder with a 0.2 cm. in length portion of cystic duct attached. The outer surface is de la cruz-green and varies from smooth to shaggy. The lumen contains green, tenacious bile as well as abundant de la cruz, irregular choleliths ranging from 0.1-0.8 cm in greatest dimension. The mucosa is dark green and velvety. The wall of the gallbladder averages 0.2 cm. in thickness. Fire Observer sections are submitted in one cassette. 04/10/201704/10/2017
--- NOTE | 2017-04-18 07:53 | OP ---
DATE OF OPERATION: 04/07/2017 PREOPERATIVE DIAGNOSIS: Chronic cholecystitis. POSTOPERATIVE DIAGNOSIS: Chronic cholecystitis. PROCEDURE: Laparoscopic cholecystectomy. SURGEON: Jorgito Go MD HAIR SPINNING MACHINE OPERATOR: MARITZA Carter and MARITZA Crum ANESTHESIA: General endotracheal and local 20 mL of 0.5% Marcaine. ESTIMATED BLOOD LOSS: 5 mL. FLUIDS: 1400 mL of crystalloid. SPECIMENS: Gallbladder to pathology. FINDINGS: Multiple adhesions of omentum, fat, and bowel to anterior abdominal wall, liver, and gallbladder. An additional left-sided port was needed initially to take these down to expose the right upper quadrant. The critical view was identified and there were multiple stones palpable in the gallbladder. DISPOSITION: Stable and extubated to PACU. INDICATIONS FOR PROCEDURE: The patient is a 61-year-old female who presented to the emergency department with a 2-week history of abdominal pain, primarily in the left lower quadrant, but she had also been seen recently at [facility] where she was admitted for abdominal pain and cholelithiasis. Her pain never really got better. She came to [facility] because it was continuing to get worse. She had multiple episodes of nausea and vomiting. She had a past history of 2 sections, hypertension, and constipation. In the emergency room, she had a low- grade temperature of 99.6, white count of 9.2, normal liver function tests, and ultrasound that showed cholelithiasis with a thickened gallbladder wall. She was also tender in the right upper quadrant with left lower quadrant tenderness that came and went. She did not have any rebound or guarding. She did have a midline infraumbilical scar. Her lactate was also somewhat elevated. She was hydrated and started on antibiotics, admitted to the medical service and ultimately was taken for CT scan, which showed her gallbladder filled with gas-containing stones. Her lactate normalized and electrolytes were repleted. Although she felt much better, she still had some residual pain and tenderness in the right upper quadrant. She had also initially come in significantly hypertensive and was placed on medications and seen by cardiology. Her blood pressure was now down to a more acceptable range. Risks , benefits, and alternatives of laparoscopic, possible open, cholecystectomy were discussed with the patient, including but not limited to bleeding, infection, injury to adjacent structures, bile leak or ductal injury, intraabdominal collection, hernia, need for further procedures, and . The patient desires to proceed with the operation and signed informed consent for the same. She is now brought to the operating room for this procedure. OPERATIVE TECHNIQUE: The patient was brought to the operating room and laid supine on the operating table. Sequential compression devices were applied to bilateral lower extremities. Appropriate antibiotics with regards to her already scheduled medications were given. After induction and intubation by anesthesia, the patient's abdomen was prepped and draped in sterile fashion. A small supraumbilical midline incision was made with a scalpel and carried into the subcutaneous tissues with electrocautery, until the abdominal wall fascia was identified, scored, and elevated with Gertrude clamps. The peritoneum was entered bluntly with the tip of a clamp , and a fingertip used to ensure entry into the abdominal cavity. There were some fatty adhesions identified underlying this area, but we were clearly in the abdominal cavity. Thus a stay suture of 0 Vicryl was placed in the fascia in a [id number] fashion for later closure, and the Teresita trocar was introduced directly into the abdominal cavity and secured in place with the balloon. The abdomen was insufflated with carbon dioxide, and the laparoscope was inserted to inspect the abdominal cavity, but we had difficulty visualizing anything in the right upper quadrant, because of adhesions that were present to the anterior abdominal wall and the falciform ligament. Thus, we elected to also place a 10-mm port in the subxiphoid area. Thus a 10-mm incision was made with a scalpel, and a 10-mm port was placed under direct vision in this area, which we were able to see with the camera in the umbilical port. Once this had been placed, the camera was switched to the subxiphoid port and used to visualize the umbilical port site, where it was noted that there were some fatty adhesions up around the port area, and the falciform ligament was blocking our view to the right upper quadrant, as well as some other fatty adhesions to the liver and the right upper quadrant. There were some bowel loops also adherent to the anterior abdominal wall, but this was lower down. An additional 5-mm left-sided port was then placed under direct vision in the left mid-abdomen. With the camera in the subxiphoid port, instruments in each of the other 2 ports were used; cold scissors on one side and grasper in the other, to take down a number of these adhesions, particularly in the avascular, thin, filmy areas. Once the adhesions had been taken down enough from the anterior abdominal wall, including a portion of the falciform ligament, which was taken with hot scissors, we ultimately were able to visualize the gallbladder in the right upper quadrant. At this point, 2 additional 5-mm ports were placed in the right upper quadrant under direct vision in the usual locations. Through these, graspers were introduced; 1 to grasp the fundus of the gallbladder and elevate it off of the liver edge, and the 2nd to grasp the infundibulum of the gallbladder and retract it laterally. The operation then proceeded in the fairly standard fashion, with hook cautery being used to begin dividing the peritoneum over the base of the gallbladder and working our way up the medial and lateral sides. The [place] dissector was then also used to isolate and identify the cystic duct and the cystic artery. There were multiple stones noted in the gallbladder, but the duct and artery themselves were normal size. With the cystic duct clearly identified in the critical view as the only structure directly entering the gallbladder from both medial and lateral sides, it was clipped 2 proximally and 1 distally, and divided with endoscissors. The same was done with the cystic artery, which was then identified just behind the lymph node of [place]. Once this had been accomplished, the gallbladder was taken off of the liver bed with hook cautery. It was then placed in an EndoCatch bag and retrieved out the umbilical port site with only slight stretching of the peritoneum and fascia, and passed off for a pathology specimen. Once the trocar and pneumoperitoneum had been reestablished at this location, the operative site was inspected for hemostasis. There was noted to be no active bleeding. The suction licensed clinical psychologist was used to clear the area with saline solution and suction out all fluid from the right upper quadrant. The patient was returned from reverse Trendelenburg to neutral position, and the ports were removed under direct vision. At the umbilical site, we closed the fascia there by tying the stay suture. An additional [id number] 0 Vicryl was laced in the subxiphoid site to close the fascia there. The port sites were irrigated with saline solution. Local anesthetic was injected into all 5 sites. The skin was closed with 4-0 Vicryl subcuticular sutures, including a running at the umbilical and subxiphoid sites. Benzoin and Steri-Strips were applied over the incisions, and they were dressed with gauze and Tegaderm over these. Counts were correct at the end of the procedure. The patient was then awakened and extubated by anesthesia, returned to her stretcher, and taken to the recovery room in stable condition, having tolerating the procedure well. Cinthya Elmore/[id number] MTDD
== END 2017-04-09 16:06 | disposition home or self-care (01) | DRG 263 ==
LOC: JER 08:56 → JERBED 11:46 → J4W 20:46 → JSAMEDAYSX 04-07 18:43 → J8W 04-07 21:17
PROVIDERS: ADMIT Internal Medicine; ATTEND Internal Medicine
PROC: 0FT44ZZ Resection of Gallbladder, Percutaneous Endoscopic Approach (ICD-10-PCS; principal; 2017-04-05)
DX: K80.12 Calculus of gallbladder with acute and chronic cholecystitis without obstruction (principal); E86.0 Dehydration; K59.00 Constipation, unspecified; E05.90 Thyrotoxicosis, unspecified without thyrotoxic crisis or storm; Z87.891 Personal history of nicotine dependence; E87.6 Hypokalemia; R11.10 Vomiting, unspecified; I12.9 Hypertensive chronic kidney disease with stage 1 through stage 4 chronic kidney disease, or unspecified chronic kidney disease; N18.9 Chronic kidney disease, unspecified; N17.9 Acute kidney failure, unspecified; I16.0 Hypertensive urgency; K64.9 Unspecified hemorrhoids
CPT/HCPCS: 36415; 71010-TC; 74020-TC; 74177-TC; 76705-TC; 76775-TC; 80048; 80053; 80307; 81003; 81015; 82550; 83605; 83690; 83735; 84100; 84484; 85025; 85027; 85610; 85730; 86850; 86900; 86901; 87086; 88304-TC; 90688; 93005; 93010; 93306-TC; 94760; 99284-25; G0008; J1644